=== PATIENT | male | born 1940 | race Caucasian/White ===

== ENCOUNTER 2017-08-16 12:11 | Inpatient (IN) | payer MEDICARE ==
[~2017-08-16] VITALS: Ht 177.8 cm; Wt 65.3 kg
[2017-08-16] MEDS ORDERED: IV NORMAL SALINE 1000 ML BAG IV ONE (12:30)
[2017-08-16] MEDS ORDERED: INSULIN REGULAR, HUMAN 1,000 UNITS/10 ML VIAL IV ONE (12:30)
[2017-08-16] MEDS ORDERED: INSULIN REGULAR, HUMAN 300 UNIT/3 ML VIAL ONE (12:38)
[2017-08-16 12:50] LABS: BASOPHILS % (AUTO) 0.1 % (0.0-2.0); HEMATOCRIT 35.1 % (36.7-47.1); HEMOGLOBIN 11.8 g/dL (12.5-16.3); LYMPHOCYTES # (AUTO) 0.4 K/uL (20.0-40.0); LYMPHOCYTES % (AUTO) 3.2 % (20.5-51.5); MEAN CORPUSCULAR HEMOGLOBIN 29.5 uug (23.8-33.4); MEAN CORPUSCULAR HGB CONC 34 g/dL (32.5-36.3); MEAN CORPUSCULAR VOLUME 87.8 fL (73.0-96.2); MONOCYTES # (AUTO) 0.3 K/uL (2.0-10.0); MONOCYTES % (AUTO) 2.8 % (0.0-11.0); NEUTROPHILS # (AUTO) 11.3 K/uL (1.8-8.9); NEUTROPHILS % (AUTO) 93.9 % (38.5-71.5); PLATELET COUNT (AUTO) 196 K/uL (152-348); WHITE BLOOD COUNT (AUTO) 12.1 K/uL (3.6-10.2)
--- NOTE | 2017-08-16 13:00 | NUR ---
attempted to place folley cath per md order, unable to proced due to resistance in the urethera.
[2017-08-16] MEDS ORDERED: LORAZEPAM 2 MG/1 ML VIAL ONE (13:01)
[2017-08-16 13:04] LABS: ETHANOL < 3 MG/DL (0-0)
[2017-08-16 13:08] LABS: CARBON DIOXIDE 23 mmol/L (21-32); CHLORIDE 97 mmol/L (98-107); CREATININE 2.8 mg/dL (0.6-1.3); POTASSIUM 4.2 mmol/L (3.5-5.1); UREA NITROGEN, BLOOD 61 mg/dL (7-18)
[2017-08-16 13:10] LABS: GLUCOSE 623 mg/dL (74-106)
[2017-08-16 13:17] LABS: THYROID STIMULATING HORMONE 1.545 mIU/mL (0.358-3.740)
[2017-08-16 13:20] LABS: ALANINE AMINOTRANSFERASE 14 U/L (16-63); ALKALINE PHOSPHATASE 84 U/L (50-136); ASPARTATE AMINOTRANSFERASE 14 U/L (15-37); BILIRUBIN,DIRECT 0.4 mg/dL (0.0-0.2); BILIRUBIN,TOTAL 1.4 mg/dL (0.2-1.0); TOTAL PROTEIN, SERUM 7.8 g/dL (6.4-8.2)
[2017-08-16 13:22] LABS: ACETAMINOPHEN < 2.0 ug/mL (10-30)
--- NOTE | 2017-08-16 13:27 | NUR ---
bi=[id number]
[2017-08-16] MEDS ORDERED: IV NS 1000 ML 1,000 ML IV ONE (13:45)
[2017-08-16] MEDS ORDERED: LIDOCAINE 2% (UROJET) 10 ML JELLY MM ONE ×4 (14:20→16:45)
--- NOTE | 2017-08-16 14:20 | NUR ---
BLADDER SCAN SHOWS [address] QUIROZ CALLED. Addendum: 08/16/17 at 1547 by FRANDY CHANGE OF TIME, [id number]
--- NOTE | 2017-08-16 14:36 | NUR ---
condom cath placed for pt per md order.
--- NOTE | 2017-08-16 14:38 | NUR ---
pt daughter at [facility], talked to jazmyn, social sciences professor.
--- NOTE | 2017-08-16 15:13 | NUR ---
Call placed to [facility], Dr. Starks will be paged.
[2017-08-16] MEDS ORDERED: CEFTRIAXONE 1 G in IV DEXTROSE 5% 50 ML IV ONE (15:15)
[2017-08-16] MEDS ORDERED: CEFTRIAXONE 1 G VIAL ONE (15:28)
--- NOTE | 2017-08-16 15:36 | NUR ---
ELKIN speaking to Dr. Starks
--- NOTE | 2017-08-16 16:08 | NUR ---
TENA, PT DAUGHTER CALLED AND SAID THE PT HAS BEEN ON SOME PROSTATE MEDICICNE BEFORE NOT ANY MORE ND THE PT HAS NO KNOWN DRUG ALLERGY, ALSO THE PT TAKES SOME TRAMADOL AT HOME. DOES NOT KNOW THE DOSAGE Addendum: 08/16/17 at 1926 by SPOURMANSO TENA ALSO SAID THAT THE PT WAS COMPLAINING ABOUT FORGETFULNESS LATELY.
--- NOTE | 2017-08-16 16:29 | NUR ---
FRANCO note: Patient brought into the ED by paramedics at 12:10pm. Paramedics reported that they found patient in his home, naked on the floor, not responsive. Paramedics stated that the house was very hot, very unkept and dirty, and the house smelled of urine. Paramedics also stated that the gas burner was on at the highest level. Paramedics reported that patient's son, who suffers from epilepsy was also in the home, and that he was able to notify his half-sister of the incidence. At around 1:20pm, SW tried to meet with patient in his assigned ED room, but patient was unresponsive and no history was able to be obtained. Patient did not have any personal belongings, clothing, or identification on him. SW was informed by ED wanigan clerknicole Palma that patient's step-daughter had called him and had stated that they had gone to the wrong hospital, but were now on their way to see the patient. At 2:35pm, patient's ex- Marcela Lugo and patient's step-daughter Lily Brown (Marcela's daughter) arrived to the ED. SW met with the both of them, and they were able to provide some history on the patient. Marcela and the patient nearly 30 years ago, and have 1 son, Marquise Dubon (39 years old). Marquise Blandon is the son that lives with the patient, and he suffers from epilepsy, is legally blind, and according to Marcela and Lily may also suffer from additional developmental disabilities that the Marcela and Lily did not know specifics on. Marcela stated that when she and patient , she agreed to give the patient full custody of their son, and therefore she has very limited contact with her son. Marcela stated that she has not been allowed to visit the patient or their son. However, Lily stated that she and her sister (Juanita Brown) have some contact with their half-brother. Lily reported that patient does not receive any medical care, and has not seen a doctor in many years. Lily is uncertain of any medications for patient. Lily is also uncertain of patient's insurance benefits. Lily also stated that patient does not have any family members in [place]. FRANCO discussed with Marcela and Lily the pie topper's report on how the paramedics found the patient. FRANCO informed both Lily and Marcela that SW is legally obligated to make an APS report for self-neglect, and they both expressed understanding and agreement. FRANCO thanked Lily and Marcela for their time and cooperation. FRANCO informed STEPH Ramirez and Dr. Aj of above. 4:00pm: FRANCO made an online APS report. Report # [id number].
--- NOTE | 2017-08-16 16:38 | NUR ---
UT=[id number]
[2017-08-16] MEDS ORDERED: INSULIN REGULAR, HUMAN 100 UNITS in IV NORMAL SALINE 100 ML IV ONE ×2 (17:00)
[2017-08-16 17:24] LABS: *BILIRUBIN,URIN NEGATIVE (NEGATIVE); *BLOOD, URINE 2+ (NEGATIVE); *CLARITY,URINE CLEAR (CLEAR); *COLOR,URINE YELLOW (YELLOW); *KETONES,URINE NEGATIVE (NEGATIVE); *PROTEIN,URINE 1+ (NEGATIVE); *UROBILINOGEN,URINE 0.2 E.U./dl (NORMAL); LEUKOCYTE ESTERASE ,URINE 1+ (NEGATIVE); NITRITE, URINE NEGATIVE (NEGATIVE)
[2017-08-16 17:26] LABS: UGLUCOSE 2+ (NEGATIVE)
[2017-08-16 17:28] LABS: BACTERIA,URINE MODERATE /HPF (NONE SEEN); SQUAMOUS EPITHELIAL CELL,UR FEW /HPF (NONE SEEN); WBC,URINE 80-100 /HPF (0-3)
[2017-08-16 17:33] LABS: *AMPHETAMINE, URINE NEGATIVE (NEGATIVE); *BARBITURATE, URINE NEGATIVE (NEGATIVE); *CANNABINOID, URINE NEGATIVE (NEGATIVE); *COCCAINE, URINE NEGATIVE (NEGATIVE); *OPIATE, URINE NEGATIVE (NEGATIVE); *PHENCYCLIDINE SCREEN,URINE NEGATIVE (NEGATIVE)
--- NOTE | 2017-08-16 18:01 | NUR ---
QG=[id number]
[2017-08-16] MEDS ORDERED: ONDANSETRON 4 MG/2 ML VIAL ONE (18:09)
[2017-08-16] MEDS ORDERED: MORPHINE SULFATE 4 MG/1 ML DISP.SYRIN ONE (18:09)
--- NOTE | 2017-08-16 18:10 | NUR ---
DR. CAREN QUIROZ AT BEDSIDE TO PLACE FOLLEY
[2017-08-16] MEDS ORDERED: ONDANSETRON 4 MG/2 ML VIAL IV ONE (18:15)
[2017-08-16] MEDS ORDERED: MORPHINE SULFATE 2 MG/1 ML DISP.SYRIN IV ONE (18:15)
--- NOTE | 2017-08-16 18:36 | NUR ---
DR. QUIROZ PLACED FOLLEY CATH 16. DRAINED 1700 ML URINE
--- NOTE | 2017-08-16 19:18 | NUR ---
SY=[id number]
--- NOTE | 2017-08-16 19:27 | NUR ---
HANDS OFF REPORT GIVEN TO NEO CHOI.
--- NOTE | 2017-08-16 20:57 | NUR ---
Pt transferred to CCU. Emptied 2000ml of cloudy yellow urine.
[2017-08-16 21:04] VITALS: BP 129/73
--- NOTE | 2017-08-16 21:05 | NUR ---
ADMITTED FROM ER VIA [facility] W/ ADMITTING DX OF SEPSIS W/ BLOOD SUGAR OF 279. PT. IS LETHARGIC.OPENS HIS EYES TO NOXIOUS STIMULI. PT IS VERBALLY NONRESPONSIVE. ON REGULAR INSULIN DRIP @ 5 UNITS/HR,ON L WRIST W/ ACCUCHECK Q1H. HEP LOCK INTACT & PATENT ON RFA. C-SCOPE SR, AFEBRILE, BP STABLE. BEDBATH GIVEN & REPOSITIONED ON HIS SIDE W/ HOB ELEVATED.
[2017-08-16 21:30] VITALS: BP 123/60
[2017-08-16 22:00] VITALS: BP 113/62
[2017-08-16] MEDS ORDERED: MORPHINE SULFATE 2 MG/1 ML DISP.SYRIN IV PRN (22:00)
[2017-08-16] MEDS ORDERED: INSULIN REGULAR, HUMAN 100 UNIT in IV NORMAL SALINE 99 ML IV PRN ×2 (22:00)
[2017-08-16] MEDS ORDERED: ALBUTEROL SULFATE 2.5 MG/3 ML NEBU NEB PRN (22:00)
[2017-08-16] MEDS ORDERED: ACETAMINOPHEN 650 MG SUPP.RECT RC PRN (22:00)
[2017-08-16] MEDS ORDERED: Z GUARD REMEDY PASTE 57 GM TUBE TOP PRN (22:15)
[2017-08-16 22:30] VITALS: BP 107/53
[2017-08-16] MEDS: IV NS 1000 ML 1,000 ML IV PRN (22:30)
[2017-08-16] MEDS ORDERED: VANCOMYCIN IV 1,000 MG in IV DEXTROSE 5% 250 ML IV ONE (22:30)
[2017-08-16 23:00] VITALS: BP 101/50
[2017-08-16] MEDS ORDERED: BLOOD SUGAR DIAGNOSTIC 1 EACH STRIP VI SCH (23:00)
--- NOTE | 2017-08-16 23:00 | NUR ---
MARIBETH DONE BS-68, CALLED LAB TO RECHECK BS STAT.
[2017-08-16] MEDS ORDERED: PIPERACILLIN/TAZOBACTAM/D5W 100 ML ONE (23:19)
[2017-08-16] MEDS ORDERED: VANCOMYCIN IV 200 ML ONE (23:19)
[2017-08-16] MEDS: PIPERACILLIN/TAZOBACTAM/D5W 2.25 G in PREMIXED 1 EACH IV SCH (23:20)
--- NOTE | 2017-08-16 23:30 | NUR ---
BLOOD SUGAR BY LAB-69, CALLED OLIVIA FLOWER.
[2017-08-17] VITALS (23 sets, daily range): BP systolic 96–139; BP diastolic 51–76
[2017-08-17] MEDS ORDERED: DEXTROSE 50% 50 ML DISP.SYRIN IV ONE
[2017-08-17] MEDS: IV NS 1000 ML 1,000 ML IV PRN (00:03)
--- NOTE | 2017-08-17 00:20 | NUR ---
OLIVIA FLOWER CALLED BACK UPDATED OF PTS STATUS W/ ORDERS
[2017-08-17] MEDS ORDERED: DEXTROSE 50% 50 ML DISP.SYRIN IV PRN (00:30)
[2017-08-17 00:47] LABS: CARBON DIOXIDE 29 mmol/L (21-32); CHLORIDE 108 mmol/L (98-107); CREATININE 1.6 mg/dL (0.6-1.3); GLUCOSE 66 mg/dL (74-106); POTASSIUM 3.3 mmol/L (3.5-5.1); UREA NITROGEN, BLOOD 51 mg/dL (7-18)
[2017-08-17] MEDS: IV D5W 1000ML 1,000 ML IV PRN ×2 (00:47→17:17)
[2017-08-17 00:51] LABS: MAGNESIUM 2.7 mg/dL (1.8-2.4); PHOSPHOROUS 3.6 mg/dL (2.5-4.9)
[2017-08-17] MEDS: BLOOD SUGAR DIAGNOSTIC 1 EACH STRIP VI SCH ×6 (03:44→23:46)
[2017-08-17] MEDS: INSULIN REGULAR, HUMAN 300 UNIT/3 ML VIAL SQ PRN ×6 (03:59→23:47)
--- NOTE | 2017-08-17 04:00 | NUR ---
AM CARE DONE. ORAL CARE DONE. REPOSITIONED ON HIS SIDE.
[2017-08-17 05:33] LABS: *BILIRUBIN,URIN NEGATIVE (NEGATIVE); *BLOOD, URINE 2+ (NEGATIVE); *CLARITY,URINE TURBID (CLEAR); *COLOR,URINE YELLOW (YELLOW); *KETONES,URINE NEGATIVE (NEGATIVE); *PROTEIN,URINE 1+ (NEGATIVE); *UROBILINOGEN,URINE 0.2 E.U./dl (NORMAL); LEUKOCYTE ESTERASE ,URINE 3+ (NEGATIVE); NITRITE, URINE NEGATIVE (NEGATIVE)
--- NOTE | 2017-08-17 05:35 | NUR ---
PT IS VERBALLY RESPONSIVE THIS TIME. REMAINS DROWSY. V/S STABLE.
[2017-08-17] MEDS: PIPERACILLIN/TAZOBACTAM/D5W 2.25 G in PREMIXED 1 EACH IV SCH (05:41)
[2017-08-17 05:45] LABS: UGLUCOSE 1+ (NEGATIVE)
[2017-08-17 05:47] LABS: BACTERIA,URINE FEW /HPF (NONE SEEN); RBC,URINE TNTC /HPF (0-3); SQUAMOUS EPITHELIAL CELL,UR FEW /HPF (NONE SEEN); WBC,URINE TNTC /HPF (0-3)
[2017-08-17 05:52] LABS: IRON, SERUM 22 ug/dL (50-175)
[2017-08-17 05:57] LABS: ALANINE AMINOTRANSFERASE 16 U/L (16-63); ALKALINE PHOSPHATASE 77 U/L (50-136); ASPARTATE AMINOTRANSFERASE 15 U/L (15-37); CARBON DIOXIDE 28 mmol/L (21-32); CHLORIDE 105 mmol/L (98-107); CHOLESTEROL 148 mg/dL (<200); CREATININE 1.4 mg/dL (0.6-1.3); GLUCOSE 276 mg/dL (74-106); HDL CHOLESTEROL 66 mg/dL (40-60); MAGNESIUM 2.5 mg/dL (1.8-2.4); PHOSPHOROUS 3.3 mg/dL (2.5-4.9); POTASSIUM 3.6 mmol/L (3.5-5.1); TOTAL PROTEIN, SERUM 7.7 g/dL (6.4-8.2); TRIGLYCERIDES 42 MG/DL (30-150); UREA NITROGEN, BLOOD 46 mg/dL (7-18)
[2017-08-17 06:08] LABS: BASOPHILS % (AUTO) 0.1 % (0.0-2.0); EOSINOPHILS % (AUTO) 0.1 % (0.0-7.0); HEMATOCRIT 37.2 % (36.7-47.1); HEMOGLOBIN 12.5 g/dL (12.5-16.3); LYMPHOCYTES # (AUTO) 0.6 K/uL (20.0-40.0); LYMPHOCYTES % (AUTO) 3.7 % (20.5-51.5); MEAN CORPUSCULAR HEMOGLOBIN 29.5 uug (23.8-33.4); MEAN CORPUSCULAR HGB CONC 34 g/dL (32.5-36.3); MEAN CORPUSCULAR VOLUME 87.7 fL (73.0-96.2); MONOCYTES # (AUTO) 1.2 K/uL (2.0-10.0); MONOCYTES % (AUTO) 7.7 % (0.0-11.0); NEUTROPHILS # (AUTO) 13.9 K/uL (1.8-8.9); NEUTROPHILS % (AUTO) 88.4 % (38.5-71.5); PLATELET COUNT (AUTO) 182 K/uL (152-348); RED BLOOD CELL COUNT(AUTO) 4.24 MIL/uL (4.06-5.63); WHITE BLOOD COUNT (AUTO) 15.7 K/uL (3.6-10.2)
--- NOTE | 2017-08-17 07:30 | NUR ---
RECIEVED LYING IN BED WITH HOB UP 35DEGREES. PT MORE ALERT AND RESPONSIVE. ORIENTED X2. DENIES ANY PAIN. ABLE TO SWALLOW WATER WELL. NO APPARENT SOB NOTED. SOMEWHAT SLOW IN SPEECH BUT CLEAR. MOVES ALL EXTREMETIES WITH GENERAL MILD WEAKNESS. STILL NPO AT THIS TIME. AFEBRILE.
[2017-08-17] MEDS ORDERED: ASPIRIN 300 MG RECTAL SUPP RC SCH (09:00)
[2017-08-17] MEDS: PANTOPRAZOLE SODIUM 40 MG VIAL IV SCH (09:11)
[2017-08-17] MEDS ORDERED: MORPHINE SULFATE 4 MG/1 ML DISP.SYRIN IV PRN (09:30)
[2017-08-17] MEDS ORDERED: MORPHINE SULFATE 2 MG/1 ML DISP.SYRIN IV PRN (09:45)
--- NOTE | 2017-08-17 10:00 | NUR ---
2D ECHO DONE AT THE BEDSIDE.
[2017-08-17] MEDS ORDERED: VANCOMYCIN IV 1 G in PREMIXED 0 EACH IV SCH (11:00)
--- NOTE | 2017-08-17 11:30 | NUR ---
RENAL US DONE AT THE BEDSIDE.
--- NOTE | 2017-08-17 14:34 | NUR ---
Clinical pharmacy note-Vancomycin dosing per pharmacy Subjective: To start Vancomycin dosing on this patient for Documented infection(No MD note yet) Objective: BUN 46 Scr 1.4 WBC 15.7 Temp 98.5 Ht 177.8cm Wt 65kg Assessment/Plan: Patient had Vancomycin 1 gram in er last night at 2340. Will continue Vancomycin 1 gram IV every 24hrs(second dose today at 1100) and draw trough by 4th dose(not ordered yet) for expected trough around 15. Will monitor daily.
[2017-08-17] MEDS: PIPERACILLIN/TAZOBACTAM/D5W 3.375 G in PREMIXED 1 EACH IV SCH ×2 (14:53→22:12)
[2017-08-17 15:54] LABS: *CREATININE,URINE 57.6 mg/dL (30-125); *URINE TOTAL PROTEIN RANDOM 61.5 mg/dL (<150/24HR)
[2017-08-17 15:56] LABS: *BILIRUBIN,URIN NEGATIVE (NEGATIVE); *BLOOD, URINE 3+ (NEGATIVE); *CLARITY,URINE CLOUDY (CLEAR); *COLOR,URINE YELLOW (YELLOW); *KETONES,URINE NEGATIVE (NEGATIVE); *PROTEIN,URINE 1+ (NEGATIVE); *UROBILINOGEN,URINE 0.2 E.U./dl (NORMAL); LEUKOCYTE ESTERASE ,URINE 1+ (NEGATIVE); NITRITE, URINE NEGATIVE (NEGATIVE); PH,URINE 5.5 (5.0-8.0)
[2017-08-17 15:57] LABS: UGLUCOSE 2+ (NEGATIVE)
[2017-08-17 15:58] LABS: BACTERIA,URINE FEW /HPF (NONE SEEN); SQUAMOUS EPITHELIAL CELL,UR FEW /HPF (NONE SEEN); WBC,URINE 80-100 /HPF (0-3)
--- NOTE | 2017-08-17 16:30 | NUR ---
SEEN AND EXAMINED BY DR COLEMAN WITH NEW ORDERS. PT DRINKING FLUIDS WELL WITHOUT ANY PROBLEM. PM CARE RENDERED. GOOD URINE OUT PUT DRAING FSROM THE FOLEYCATHETER. AFEBRILE.
--- NOTE | 2017-08-17 20:00 | NUR ---
RECEIVED PT. RESTING QUITELY THIS TIME. ON O2 @ 3LNC W/ O2 SAT OF 97%. IVF OF D5W @ 75CC/HR ON L WRIST. HEP LOCK INTACT & PATENT ON RFA. AFEBRILE, BP STABLE. ACCUCHECK DONE & COVERED W/ REGULAR INSULIN SUBCU ACCDG TO MODERATE SLIDING SCALE. NOT IN ANY DISTRESS.
--- NOTE | 2017-08-17 22:00 | NUR ---
HS CARE DONE. REPOSITIONED.
[2017-08-18] VITALS (14 sets, daily range): BP systolic 108–151; BP diastolic 56–77
--- NOTE | 2017-08-18 00:05 | NUR ---
AFEBRILE. BP STABLE. TAKING FLUIDS WELL, ALWAYS ASKED FOR WATER.
[2017-08-18] MEDS: BLOOD SUGAR DIAGNOSTIC 1 EACH STRIP VI SCH ×5 (03:52→20:11)
[2017-08-18 05:24] LABS: BASOPHILS % (AUTO) 0.3 % (0.0-2.0); EOSINOPHILS # (AUTO) 0.2 K/uL (0.0-0.7); EOSINOPHILS % (AUTO) 1.8 % (0.0-7.0); HEMATOCRIT 35.9 % (36.7-47.1); HEMOGLOBIN 12.2 g/dL (12.5-16.3); LYMPHOCYTES # (AUTO) 1.1 K/uL (20.0-40.0); LYMPHOCYTES % (AUTO) 9.3 % (20.5-51.5); MEAN CORPUSCULAR HEMOGLOBIN 29.4 uug (23.8-33.4); MEAN CORPUSCULAR HGB CONC 34 g/dL (32.5-36.3); MEAN CORPUSCULAR VOLUME 86.6 fL (73.0-96.2); MONOCYTES % (AUTO) 8.7 % (0.0-11.0); NEUTROPHILS # (AUTO) 9.3 K/uL (1.8-8.9); NEUTROPHILS % (AUTO) 79.9 % (38.5-71.5); PLATELET COUNT (AUTO) 170 K/uL (152-348); RED BLOOD CELL COUNT(AUTO) 4.14 MIL/uL (4.06-5.63); WHITE BLOOD COUNT (AUTO) 11.6 K/uL (3.6-10.2)
--- NOTE | 2017-08-18 05:30 | NUR ---
AM CARE DONE. REFUSED TO BRUSH HIS TEETH, STATED LATER. NOT IN ANY DISTRESS.
[2017-08-18] MEDS: PIPERACILLIN/TAZOBACTAM/D5W 3.375 G in PREMIXED 1 EACH IV SCH ×3 (05:40→21:42)
[2017-08-18 05:50] LABS: ALANINE AMINOTRANSFERASE 16 U/L (16-63); ALKALINE PHOSPHATASE 68 U/L (50-136); ASPARTATE AMINOTRANSFERASE 16 U/L (15-37); BILIRUBIN,TOTAL 1.2 mg/dL (0.2-1.0); CARBON DIOXIDE 33 mmol/L (21-32); CHLORIDE 103 mmol/L (98-107); CREATINE KINASE, TOTAL 34 U/L (39-308); CREATININE 0.9 mg/dL (0.6-1.3); GLUCOSE 113 mg/dL (74-106); PHOSPHOROUS 2.3 mg/dL (2.5-4.9); POTASSIUM 3.3 mmol/L (3.5-5.1); UREA NITROGEN, BLOOD 26 mg/dL (7-18)
--- NOTE | 2017-08-18 07:30 | NUR ---
RECIEVED PT SOUND ASLEEP BUT AROUSABLE. COLOR IS GOOD, SKIN WARM AND DRY. SR ON THEMONITOR. SATTING 100% ON RA. PT PREFERS TO EAT REAL FOOD AND REFUSED TO EAT PUREED. ORDERED SOFT DIABETIC DIET AND ITS OK PER DR COLEMAN.
[2017-08-18] MEDS: IV D5W 1000ML 1,000 ML IV PRN (08:29)
--- NOTE | 2017-08-18 08:30 | NUR ---
PT STILL SOUND ASLEEP. LATE BREAKFAST. NO C/O APPARENT DISCOMFORTS.
[2017-08-18] MEDS ORDERED: MORPHINE SULFATE 4 MG/1 ML DISP.SYRIN IV PRN (08:37)
[2017-08-18] MEDS: INSULIN REGULAR, HUMAN 300 UNIT/3 ML VIAL SQ PRN ×3 (08:48→17:28)
[2017-08-18] MEDS: ASPIRIN 325 MG TABLET PO SCH (09:25)
[2017-08-18] MEDS: PANTOPRAZOLE SODIUM 40 MG VIAL IV SCH (09:25)
[2017-08-18] MEDS: VANCOMYCIN IV 1 G in PREMIXED 0 EACH IV SCH (09:36)
--- NOTE | 2017-08-18 09:44 | NUR ---
Clinical pharmacy note-Vancomycin dosing per pharmacy Subjective: To continue Vancomycin dosing on this patient for Documented infection( increased wbc, arf) Objective: BUN 26 Scr 0.9 (yesterday 1.4) WBC 11.6 Temp 97.6 Ht 177.8cm Wt 65kg Assessment/Plan: As renal function drastically has improved, adjusted regimen to 1gm q16hr for estimated trough of 16.7, first dose today at 0900. Will order trough beofre 4th scheduled dose (not ordered yet). If renal function were to change again, will adjust accordingly. Will follow
[2017-08-18 10:07] LABS: *TESTOSTERONE, SERUM 158 ng/dL (264-916)
--- NOTE | 2017-08-18 10:25 | NUR ---
Unable to perform Prostate Ultrasound. The Gamino's catheter is compressing the prostate gland. The accurate measurement is not possible. STEPH Campo noted.
--- NOTE | 2017-08-18 11:30 | NUR ---
SEEN AND EXAMINED BY DR AGUILAR . US OF THE PROSTATE NOT DONE . US TECH SAID THAT ITS DIFFICULT TO GET A GOOD PICTURE OF THE PROSSTATE BECAUSE OF THE PRESENCE OF THE FOLEYCATHETER.
--- NOTE | 2017-08-18 14:00 | NUR ---
PT DOWNGRADED TO MEDR WITH AN ORDER FOR [facility]AVIER TO TRANSFER. RN DAVID MADE AWARE.
--- NOTE | 2017-08-18 14:00 | NUR ---
URINE C&S SENT TO LAB PER ID ORDER.
--- NOTE | 2017-08-18 15:00 | NUR ---
PT TAKEN DOWN TO CT SCAN FOR LUMBAR SPINE VIA BED. CONDITION IS STABLE.
[2017-08-18] MEDS: POTASSIUM PHOSPHATE MM 7.5 MMOL in IV DEXTROSE 5% 100 ML IV SCH ×2 (15:10→18:03)
--- NOTE | 2017-08-18 15:20 | NUR ---
PT IS BACK FROM CT SCAN. ALERT AND VERY CONVERSANT. SEEN AND EXAMINED BY DR COLEMAN WITH A TRANSFER ORDER TO [facility]. AWAITING FOR BED. KPHOS 3MMOL FIRST BAG IS INFUSING IV ORDERED.
[2017-08-18] MEDS: METFORMIN HCL 500 MG TABLET PO SCH (17:16)
--- NOTE | 2017-08-18 19:00 | NUR ---
TRANSFERED TO 210 MED/SURG STATUS VIA BED. TATIANA HCOI GAVE REPORT TO INCOMING RN.
[2017-08-18] MEDS ORDERED: QUETIAPINE FUMARATE 25 MG TABLET PO PRN (19:30)
--- NOTE | 2017-08-18 19:30 | NUR ---
Transferred from CCU dept. via bed. patient awake & alert, confused no SOB denies chest pain. Gamino catheter in place. 1:1 sitter provided for patient's safety. Vital signs WNL.
--- NOTE | 2017-08-18 22:00 | NUR ---
Patient attempted to OOB, disoriented to place. Re-orientation initiated. 1:1 sitter at bed side.
--- NOTE | 2017-08-19 | NUR ---
Asleep, no sign of distress. Kept comfortable.
[2017-08-19] MEDS: VANCOMYCIN IV 1 G in PREMIXED 0 EACH IV SCH (00:54)
[2017-08-19] MEDS: BLOOD SUGAR DIAGNOSTIC 1 EACH STRIP VI SCH ×6 (04:53→20:28)
[2017-08-19] MEDS: INSULIN REGULAR, HUMAN 300 UNIT/3 ML VIAL SQ PRN ×3 (04:57→16:11)
[2017-08-19] MEDS: PANTOPRAZOLE SODIUM 40 MG TABLET.DR PO SCH (05:02)
[2017-08-19] MEDS: PIPERACILLIN/TAZOBACTAM/D5W 3.375 G in PREMIXED 1 EACH IV SCH ×3 (05:02→21:45)
--- NOTE | 2017-08-19 05:48 | NUR ---
Tolerated routine IV medications. Patient remains asleep at this time, no acute resp. distress. Vital signs stable. Will continue to monitor. 1:1 sitter in room.
[2017-08-19 06:21] VITALS: BP 117/65
[2017-08-19 06:23] LABS: BASOPHILS % (AUTO) 0.3 % (0.0-2.0); EOSINOPHILS # (AUTO) 0.4 K/uL (0.0-0.7); EOSINOPHILS % (AUTO) 4.1 % (0.0-7.0); HEMATOCRIT 34.2 % (36.7-47.1); HEMOGLOBIN 11.9 g/dL (12.5-16.3); LYMPHOCYTES % (AUTO) 11.7 % (20.5-51.5); MEAN CORPUSCULAR HEMOGLOBIN 29.6 uug (23.8-33.4); MEAN CORPUSCULAR HGB CONC 35 g/dL (32.5-36.3); MEAN CORPUSCULAR VOLUME 84.9 fL (73.0-96.2); MONOCYTES # (AUTO) 0.8 K/uL (2.0-10.0); MONOCYTES % (AUTO) 9.4 % (0.0-11.0); NEUTROPHILS # (AUTO) 6.6 K/uL (1.8-8.9); NEUTROPHILS % (AUTO) 74.5 % (38.5-71.5); PLATELET COUNT (AUTO) 182 K/uL (152-348); RED BLOOD CELL COUNT(AUTO) 4.03 MIL/uL (4.06-5.63); WHITE BLOOD COUNT (AUTO) 8.9 K/uL (3.6-10.2)
[2017-08-19 06:32] LABS: CARBON DIOXIDE 29 mmol/L (21-32); CHLORIDE 101 mmol/L (98-107); CREATININE 0.9 mg/dL (0.6-1.3); GLUCOSE 206 mg/dL (74-106); MAGNESIUM 1.7 mg/dL (1.8-2.4); PHOSPHOROUS 2.3 mg/dL (2.5-4.9); POTASSIUM 3.1 mmol/L (3.5-5.1); UREA NITROGEN, BLOOD 16 mg/dL (7-18)
[2017-08-19] MEDS: LISINOPRIL 5 MG TABLET PO SCH (08:30)
[2017-08-19] MEDS: METFORMIN HCL 500 MG TABLET PO SCH ×2 (08:30→17:18)
[2017-08-19] MEDS: ASPIRIN 325 MG TABLET PO SCH (08:30)
[2017-08-19] MEDS: POTASSIUM CHLORIDE 50 ML IV SCH ×2 (09:28→10:57)
[2017-08-19 12:00] VITALS: BP 136/89
[2017-08-19] MEDS ORDERED: NEUTRA PHOS PACKET PO ONE (12:30)
[2017-08-19] MEDS ORDERED: MAGNESIUM SULFATE/D5W 100 ML IV SCH (12:30)
[2017-08-19] MEDS: LORAZEPAM 2 MG/1 ML VIAL IV PRN (13:38)
--- NOTE | 2017-08-19 14:12 | NUR ---
WOUND CARE CONSULT: PT PRESENTS WITH INTACT SKIN AND RESOLVED RASH TO INNER THIGHS. PT HAS TADEO CATH. SOME SCARS NOTED TO LEGS. PT IS VERY RESTLESS AND MOVES ALMOST CONSTANTLY AT THIS TIME. FIRST STEP OVERLAY CANCELLED FOR PT SAFETY. CURRENT JULIANE SCORE IS 13. WILL SEE PRN. RAHMAN IN AGREEMENT WITH PLAN OF CARE. Addendum: 08/19/17 at 1414 by RIC PANDYA RN Amended: Links added.
[2017-08-19 16:00] VITALS: BP 119/60
[2017-08-19 20:28] VITALS: BP 119/59
[2017-08-20] MEDS: BLOOD SUGAR DIAGNOSTIC 1 EACH STRIP VI SCH ×7 (00:13→23:55)
[2017-08-20] MEDS: INSULIN REGULAR, HUMAN 300 UNIT/3 ML VIAL SQ PRN ×4 (00:14→20:06)
[2017-08-20] MEDS: PANTOPRAZOLE SODIUM 40 MG TABLET.DR PO SCH ×2 (06:02→07:00)
[2017-08-20] MEDS: PIPERACILLIN/TAZOBACTAM/D5W 3.375 G in PREMIXED 1 EACH IV SCH ×3 (06:02→21:37)
[2017-08-20 06:06] LABS: A/G RATIO 0.7 (0.7-1.7); ALBUMIN 2.7 g/dL (2.9-4.4); ALPHA-1-GLOBULIN 0.3 g/dL (0.0-0.4); BETA GLOBULIN 0.9 g/dL (0.7-1.3); GAMMA GLOBULIN 1.6 g/dL (0.4-1.8); GLOBULIN, TOTAL 3.9 g/dL (2.2-3.9); M-SPIKE Not Observed g/dL (Not Observed)
[2017-08-20 06:15] VITALS: BP 127/66
[2017-08-20] MEDS: METFORMIN HCL 500 MG TABLET PO SCH ×2 (08:02→18:06)
[2017-08-20 08:23] VITALS: BP 129/70
[2017-08-20 08:42] LABS: BASOPHILS # (AUTO) 0.1 K/uL (0.0-8.0); EOSINOPHILS # (AUTO) 0.4 K/uL (0.0-0.7); EOSINOPHILS % (AUTO) 4.4 % (0.0-7.0); HEMATOCRIT 36.8 % (36.7-47.1); HEMOGLOBIN 12.8 g/dL (12.5-16.3); LYMPHOCYTES % (AUTO) 9.7 % (20.5-51.5); MEAN CORPUSCULAR HEMOGLOBIN 29.8 uug (23.8-33.4); MEAN CORPUSCULAR HGB CONC 35 g/dL (32.5-36.3); MEAN CORPUSCULAR VOLUME 85.7 fL (73.0-96.2); MONOCYTES # (AUTO) 0.7 K/uL (2.0-10.0); MONOCYTES % (AUTO) 6.9 % (0.0-11.0); PLATELET COUNT (AUTO) 232 K/uL (152-348); WHITE BLOOD COUNT (AUTO) 10.2 K/uL (3.6-10.2)
[2017-08-20 08:55] LABS: ALANINE AMINOTRANSFERASE 17 U/L (16-63); ALKALINE PHOSPHATASE 61 U/L (50-136); ASPARTATE AMINOTRANSFERASE 15 U/L (15-37); BILIRUBIN,TOTAL 1.2 mg/dL (0.2-1.0); CARBON DIOXIDE 31 mmol/L (21-32); CHLORIDE 101 mmol/L (98-107); CREATININE 0.9 mg/dL (0.6-1.3); GLUCOSE 169 mg/dL (74-106); MAGNESIUM 1.8 mg/dL (1.8-2.4); PHOSPHOROUS 3.4 mg/dL (2.5-4.9); POTASSIUM 3.3 mmol/L (3.5-5.1); UREA NITROGEN, BLOOD 13 mg/dL (7-18)
[2017-08-20] MEDS: LISINOPRIL 5 MG TABLET PO SCH (09:18)
[2017-08-20] MEDS: ASPIRIN 325 MG TABLET PO SCH (09:18)
[2017-08-20] MEDS: LORAZEPAM 2 MG/1 ML VIAL IV PRN ×2 (09:33→20:03)
[2017-08-20] MEDS ORDERED: POTASSIUM CHLORIDE 20 MEQ TAB.PRT.SR PO ONE (10:30)
[2017-08-20] MEDS: TAMSULOSIN HCL 0.4 MG CAP.SR.24H PO SCH ×2 (10:46→20:02)
[2017-08-20 11:10] VITALS: BP 111/54
[2017-08-20 15:11] VITALS: BP 120/64
--- NOTE | 2017-08-20 19:10 | NUR ---
Received pt lying in bed. Alert to self only, mainly confused and disoriented.family at bedside. In no acute distress. IV site on right wrist intact and patent. Bed on low and lock position. With 2:1 sitter. Safety measure initiated and call owen within reach.
[2017-08-20 20:00] VITALS: BP 126/61
[2017-08-21] MEDS: BLOOD SUGAR DIAGNOSTIC 1 EACH STRIP VI SCH ×5 (03:35→20:12)
[2017-08-21 04:00] VITALS: BP 114/64
[2017-08-21] MEDS: PIPERACILLIN/TAZOBACTAM/D5W 3.375 G in PREMIXED 1 EACH IV SCH ×2 (05:09→13:34)
[2017-08-21] MEDS: PANTOPRAZOLE SODIUM 40 MG TABLET.DR PO SCH (06:02)
--- NOTE | 2017-08-21 06:04 | NUR ---
Patient slept well last night. No signs of pain or SOB. In no acute distress. O2 sat at 99% on RA. IV site on right wrist remains intact and patent. No adverse reaction noted from IV ABX. Safety measure maintained and call owen within reach. With 2:1 sitter.
[2017-08-21] MEDS: METFORMIN HCL 500 MG TABLET PO SCH ×2 (08:13→17:05)
[2017-08-21] MEDS: INSULIN REGULAR, HUMAN 300 UNIT/3 ML VIAL SQ PRN ×4 (08:21→20:12)
[2017-08-21] MEDS: LISINOPRIL 5 MG TABLET PO SCH (08:30)
[2017-08-21] MEDS: ASPIRIN 325 MG TABLET PO SCH (08:30)
--- NOTE | 2017-08-21 08:32 | NUR ---
Held BP med due to low BP 83/49 and 89/49. Pt is sitting in chair eating breakfast. Pt is asymptomatic
--- NOTE | 2017-08-21 09:07 | NUR ---
Pt is noted walking with walker around the unit with physical therapist. No distress noted
--- NOTE | 2017-08-21 10:30 | NUR ---
Dr. Isabel aware of bladder scan results. Bladder scan revealed 888-->999 urine retention. MD will will come and see pt today for catheterization
[2017-08-21] MEDS ORDERED: LIDOCAINE 2% (UROJET) 10 ML JELLY MM STA (11:03)
[2017-08-21 11:59] VITALS: BP 109/56
--- NOTE | 2017-08-21 13:38 | NUR ---
Dr. Isabel inserted a Gamino catheter, 1100ml urine output noted in the Gamino after insertion
[2017-08-21 15:21] VITALS: BP 119/53
[2017-08-21] MEDS: LORAZEPAM 2 MG/1 ML VIAL IV PRN (18:40)
--- NOTE | 2017-08-21 18:54 | NUR ---
Pt pulled out his IV, new line started 22g on the left forearm
--- NOTE | 2017-08-21 19:20 | NUR ---
Received pt sitting in the cindy chair with sitter on his side. Pt anxious, was given Lorazepam around 6:50per day shift nurse Sarah. IV site on LFA intact and patent, cover with coban for protection. FC intact and draining via gravity. Pt to transfer to ARU today. Safety measure initiated.
[2017-08-21 20:00] VITALS: BP 107/56
--- NOTE | 2017-08-21 20:01 | NUR ---
Report given to ARU nurse. Night nurse will follow up discharging the pt to ARU.
[2017-08-21 20:30] VITALS: BP 107/56
--- NOTE | 2017-08-21 20:30 | NUR ---
Discharge pt to ARU via gerichair accompanied by this nurse and WILDER Mata. Discharge paper given to nurse Dontae and provided instruction and states understanding. Pt in no acute distress.
[2017-08-22] MEDS ORDERED: QUET25TA PO (02:03)
[2017-08-22] MEDS ORDERED: ACET650S13 RC (02:03)
[2017-08-22] MEDS ORDERED: BLOO-668 VI (02:03)
[2017-08-22] MEDS ORDERED: ASPI-612 PO (02:03)
[2017-08-22] MEDS ORDERED: METF500T6 PO (02:03)
[2017-08-22] MEDS ORDERED: PIPE3.379 IV (02:03)
[2017-08-22] MEDS ORDERED: LISI-607 PO (02:03)
[2017-08-22] MEDS ORDERED: INSU100V28 SQ (02:03)
[2017-08-22] MEDS ORDERED: PANT40TA2 PO (02:03)
[2017-08-22] MEDS ORDERED: ALBU2.5V38 NEB (02:03)
[2017-08-22] MEDS ORDERED: DEXT50DI8 IV (02:03)
[2017-08-22] MEDS ORDERED: LORA2VIA32 IV (02:03)
[2017-08-22] MEDS ORDERED: MORPHINE SULFATE INJ IV (02:03)
[2017-08-22] MEDS ORDERED: TAMS-3 PO (02:03)
== END 2017-08-21 20:30 | DRG 871 ==
LOC: ER 12:13 → CCU 20:15 → MED 08-18 20:00
PROVIDERS: ADMIT Internal Medicine; ATTEND Internal Medicine
PROC: 0T7D7ZZ Dilation of Urethra, Via Natural or Artificial Opening (ICD-10-PCS; principal; 2017-08-18)
DX: A41.9 Sepsis, unspecified organism (principal); E43 Unspecified severe protein-calorie malnutrition; G92 Toxic encephalopathy; R53.2 Functional quadriplegia; J69.0 Pneumonitis due to inhalation of food and vomit; N39.0 Urinary tract infection, site not specified; D68.59 Other primary thrombophilia; N17.9 Acute kidney failure, unspecified; E87.2 Acidosis; N13.6 Pyonephrosis; I50.32 Chronic diastolic (congestive) heart failure; M48.56XA Collapsed vertebra, not elsewhere classified, lumbar region, initial encounter for fracture; M48.54XA Collapsed vertebra, not elsewhere classified, thoracic region, initial encounter for fracture; B35.1 Tinea unguium; F03.90 Unspecified dementia, unspecified severity, without behavioral disturbance, psychotic disturbance, mood disturbance, and anxiety; M48.02 Spinal stenosis, cervical region; Z79.84 Long term (current) use of oral hypoglycemic drugs; E11.65 Type 2 diabetes mellitus with hyperglycemia; E88.09 Other disorders of plasma-protein metabolism, not elsewhere classified; N40.1 Benign prostatic hyperplasia with lower urinary tract symptoms; R33.8 Other retention of urine; Z91.81 History of falling; Z68.20 Body mass index [BMI] 20.0-20.9, adult; F09 Unspecified mental disorder due to known physiological condition; R65.20 Severe sepsis without septic shock; N48.21 Abscess of corpus cavernosum and penis; M25.78 Osteophyte, vertebrae; R60.9 Edema, unspecified; S90.32XA Contusion of left foot, initial encounter; X58.XXXA Exposure to other specified factors, initial encounter; Y93.9 Activity, unspecified; Y92.009 Unspecified place in unspecified non-institutional (private) residence as the place of occurrence of the external cause
CPT/HCPCS: 36415; 70030-TC; 70450; 71045; 72125; 72131; 73620; 76770; 80307; 82306; 82746; 83550; 83605; 83735; 83970; 84100; 84153; 84155; 84156; 84165; 84300; 84403; 84443; 85025; 85730; 86140; 87040; 87086; 93005; 93307; 97110; 97116; 97530; A4663; C1758; C9113; G0480; G0480-TC; J0696; J1815; J2060; J2270; J2405; J2543; J3370; J3475; J3480; J3490; J7030; J7050; J7060; J7070

== ENCOUNTER 2017-08-21 | Inpatient (IN) | payer MEDICARE ==
[~2017-08-21] VITALS: Ht 177.8 cm; Wt 65.8 kg
--- NOTE | 2017-08-22 | NUR ---
RECEIVED Pt IN ROOM SITTING IN JOYCE-CHAIR WITH 1:1 SITTER AT BEDSIDE FOR SAFETY, CONTINUES TO BE RESTLESS AND CONFUSED. Pt WAS BECOMING INCREASINGLY RESTLESS AND AGITATED, ADMINISTERED ATIVAN 0.5 MG IV INJ PRN WITH GOOD EFFECT. Pt HAS BEEN RESTING COMFORTABLY WITHOUT ANY NOTED DISTRESS SINCE ATIVAN ADMINISTRATION. BLOOD SUGAR OF 201 AT BEDTIME, COVERED WITH 6 UNITS OF REGULAR INSULIN PER SLIDING SCALE PROTOCOL. COMPLIANT WITH MEDS, NO HOSTILE OR COMBATIVE BEHAVIOR NOTED. Addendum: 08/23/17 at 0518 by CLAUDE GAINES RN WRONG DATE/TIME
[2017-08-22] MEDS ORDERED: Z GUARD REMEDY PASTE 57 GM TUBE TOP PRN (01:15)
[2017-08-22] MEDS ORDERED: TAMS-3 PO (02:03)
[2017-08-22] MEDS ORDERED: ALBU2.5V38 NEB (02:03)
[2017-08-22] MEDS ORDERED: LORA2VIA32 IV (02:03)
[2017-08-22] MEDS ORDERED: ASPI-612 PO (02:03)
[2017-08-22] MEDS ORDERED: BLOO-668 VI (02:03)
[2017-08-22] MEDS ORDERED: QUET25TA PO (02:03)
[2017-08-22] MEDS ORDERED: ACET650S13 RC (02:03)
[2017-08-22] MEDS ORDERED: PANT40TA2 PO (02:03)
[2017-08-22] MEDS ORDERED: DEXT50DI8 IV (02:03)
[2017-08-22] MEDS ORDERED: PIPE3.379 IV (02:03)
[2017-08-22] MEDS ORDERED: LISI-607 PO (02:03)
[2017-08-22] MEDS ORDERED: METF500T6 PO (02:03)
[2017-08-22] MEDS ORDERED: INSU100V28 SQ (02:03)
[2017-08-22] MEDS ORDERED: MORPHINE SULFATE INJ IV (02:03)
[2017-08-22] MEDS ORDERED: ALBUTEROL SULFATE 2.5 MG/3 ML NEBU NEB PRN (02:15)
[2017-08-22] MEDS ORDERED: DEXTROSE 50% 50 ML DISP.SYRIN IV PRN ×2 (02:15→19:54)
[2017-08-22] MEDS ORDERED: PIPERACILLIN/TAZO/D5W 3.375 GM FROZEN IV SCH ×2 (02:15→10:00)
[2017-08-22] MEDS ORDERED: ACETAMINOPHEN 650 MG SUPP.RECT RC PRN (02:15)
[2017-08-22] MEDS: LORAZEPAM 2 MG/1 ML VIAL IV PRN ×3 (04:06→21:54)
[2017-08-22] MEDS: BLOOD SUGAR DIAGNOSTIC 1 EACH STRIP VI SCH ×5 (04:06→20:19)
[2017-08-22] MEDS: INSULIN REGULAR, HUMAN 300 UNIT/3 ML VIAL SQ PRN ×4 (04:21→17:46)
[2017-08-22 04:24] VITALS: BP 125/65
--- NOTE | 2017-08-22 04:41 | NUR ---
ADMISSION NOTE: RECEIVED REPORT FROM 2ND FLOOR MEDICAL SURGICAL NURSE. Pt ARRIVED TO UNIT @ 2030 AND WAS BROUGHT IN BY MED SURG NURSE WITH 1:1 SITTER VIA JOYCE-CHAIR. RESPONDS TO NAME BUT CONFUSED TO TIME AND PLACE, RESTLESS AND EASILY AGITATED, COMPLIED TO MOST OF ASSESSMENT BUT UNABLE TO APPROPRIATELY RESPOND TO QUESTIONS ASKED BY NURSE DURING ASSESSMENT. Pt IN JOYCE-CHAIR WITH SITTER AT BEDSIDE. WILL DO MRSA SWAB AT A MORE APPROPRIATE TIME. NURSE WAS UNABLE TO ADMINISTER THE SCHEDULED ZOSYN IV MEDICATION @ 2200 DUE TO THE Pt NOT APPEARING ON THE EHR SYSTEM. NURSE CONTACTED ADMITTING AND ER STAFF MULTIPLE TIMES TO F/U. AUTOMOBILE BODY REPAIR SUPERVISOR, JERRY, WAS NOTIFIED REGARDING THE SITUATION. AFTER Pt WAS ADMITTED AND APPEARED ON EHR SYSTEM, MED REC WAS DONE AND CONTACTED NIGHT PHARMACY TO VERIFY MEDICATIONS. ZOSYN IV WAS ADMINISTERED @ 0215, WILL NOTIFY PHARMACY TO ADJUST THE TIME FOR FUTURE MEDICATION ADMINISTRATIONS. Pt TOLERATED MEDICATION WELL. Pt FELL ASLEEP AFTER BEING RESTLESS AND ANXIOUS UPON ADMISSION BUT WOKE UP AROUND 0345 RESTLESS, ANXIOUS, EASILY AGITATED, AND BEING INAPPROPRIATE TO CARE STAFF. ADMINISTERED ATIVAN 0.5 MG IV INJ PRN FOR ANXIETY/AGITATION. MEDICATION WAS EFFECTIVE, Pt NOW SLEEPING IN JOYCE-CHAIR WITH SITTER AT BEDSIDE. BLOOD SUGAR AT 0400 WAS 176, ADMINISTERED 3 UNITS OF REGULAR INSULIN PER MODERATE SLIDING SCALE PROTOCOL.
[2017-08-22] MEDS: PANTOPRAZOLE SODIUM 40 MG TABLET.DR PO SCH ×2 (07:06→08:53)
--- NOTE | 2017-08-22 07:30 | NUR ---
BEDSIDE SITTER FOR Pt AND HIS ROOMMATE NOTIFIED NURSE THAT THIS PATIENT STRUCK HIS ROOMMATE ON THE HEAD OUT OF NOWHERE. PER SITTER, THE PATIENT WAS IN A JOYCE-CHAIR RESTING WITHOUT ANY NOTED DISTRESS, NO AGGRESSIVE BEHAVIOR, NO RESTLESS BEHAVIOR NOTED, AND SUDDENLY REACHED OVER AND STRUCK HIS ROOMMATE ON THE HEAD WHO WAS IN BED. NURSE CONCRETE FINISHER WAS NOTIFIED, THIS NURSE RECOMMENDED FOR THIS PATIENT TO HAVE HIS OWN 1:1 SITTER. ENDORSED TO DAY SHIFT NURSE TO CONTACT THE DOCTOR AND FAMILY OF THE PATIENT WHO WAS STRUCK ON THE HEAD. THIS PATIENT WAS MOVED OUT OF THE ROOM AND PLACED IN THE ROOM ACROSS THE HALLWAY. INCIDENT REPORT HAS BEEN FILED.
[2017-08-22 07:56] VITALS: BP 106/59
--- NOTE | 2017-08-22 08:00 | NUR ---
rec d patient up in wheel chair in room 123 , f/c patent with tea colored urine and 1;1 sitter in room .patient appears to be off and on with behaviors , pt threw bedside table in afternoon and rec d ativan 0.5mg ivp for increased agitation at 15 55 it helped some. accuchecks covered with insulin worked with pt in rehab room . still needs 1;1 monitoring for safety;
[2017-08-22] MEDS: ASPIRIN 325 MG TABLET PO SCH (08:52)
[2017-08-22] MEDS: QUETIAPINE FUMARATE 25 MG TABLET PO PRN (08:53)
[2017-08-22] MEDS: METFORMIN HCL 500 MG TABLET PO SCH ×2 (08:53→17:48)
[2017-08-22] MEDS: LISINOPRIL 5 MG TABLET PO SCH (08:54)
[2017-08-22] MEDS: PIPERACILLIN/TAZOBACTAM/D5W 3.375 G in PREMIXED 1 EACH IV SCH ×2 (10:00→17:48)
[2017-08-22 15:14] VITALS: BP 117/65
[2017-08-22] MEDS ORDERED: INSULIN REGULAR, HUMAN 300 UNIT/3 ML VIAL SQ PRN (19:54)
[2017-08-22 19:55] VITALS: BP 122/54
[2017-08-22] MEDS: TAMSULOSIN HCL 0.4 MG CAP.SR.24H PO SCH (21:52)
--- NOTE | 2017-08-22 22:00 | NUR ---
CHARGE NURSE, JOSE, RECEIVED ORDER FROM DR. MEDRANO TO CHANGE PATIENT'S ACCUCHECK FROM Q4H TO ACHS.
--- NOTE | 2017-08-23 | NUR ---
RECEIVED Pt IN ROOM SITTING IN JOYCE-CHAIR WITH 1:1 SITTER AT BEDSIDE FOR SAFETY, CONTINUES TO BE RESTLESS AND CONFUSED. Pt WAS BECOMING INCREASINGLY RESTLESS AND AGITATED, ADMINISTERED ATIVAN 0.5 MG IV INJ PRN WITH GOOD EFFECT. Pt HAS BEEN RESTING COMFORTABLY WITHOUT ANY NOTED DISTRESS SINCE ATIVAN ADMINISTRATION. BLOOD SUGAR OF 201 AT BEDTIME, COVERED WITH 6 UNITS OF REGULAR INSULIN PER SLIDING SCALE PROTOCOL. COMPLIANT WITH MEDS, NO HOSTILE OR COMBATIVE BEHAVIOR NOTED.
[2017-08-23] MEDS: PIPERACILLIN/TAZOBACTAM/D5W 3.375 G in PREMIXED 1 EACH IV SCH ×3 (01:18→18:30)
[2017-08-23] MEDS: BLOOD SUGAR DIAGNOSTIC 1 EACH STRIP VI SCH ×5 (06:36→20:53)
--- NOTE | 2017-08-23 07:04 | NUR ---
PATIENT'S SITTER REPORTED TO NURSE THAT HE FED THE PATIENT A BURRITO THIS MORNING BEFORE NURSE CAME IN TO CHECK BLOOD SUGAR. PER SITTER, THE PATIENT WAS AWAKE AND RESTLESS, UNABLE TO GO BACK TO SLEEP. SITTER STATED, "I FED HIM BECAUSE HE FALLS ASLEEP AFTER EATING." NURSE INFORMED SITTER REGARDING THE PATIENT'S DIABETIC REGIMEN AND DIET, AND THAT EATING FOOD PRIOR TO ACCUCHECK CAN AFFECT ACCUCHECK READING. WILL ENDORSE TO DAY SHIFT NURSE REGARDING POSSIBLE ACCUCHECK MISREADING, AND TO RECHECK BLOOD SUGAR PRIOR TO INSULIN ADMINISTRATION THIS MORNING.
[2017-08-23 07:26] VITALS: BP 116/73
[2017-08-23] MEDS: PANTOPRAZOLE SODIUM 40 MG TABLET.DR PO SCH (08:53)
[2017-08-23] MEDS: ASPIRIN 325 MG TABLET PO SCH (08:53)
[2017-08-23] MEDS: METFORMIN HCL 500 MG TABLET PO SCH ×2 (08:53→17:13)
[2017-08-23] MEDS: LISINOPRIL 5 MG TABLET PO SCH (08:54)
[2017-08-23] MEDS ORDERED: INSULIN REGULAR, HUMAN 300 UNITS/3 ML VIAL SQ PRN (09:15)
[2017-08-23] MEDS ORDERED: DEXTROSE 50% 50 ML DISP.SYRIN IV PRN (09:15)
[2017-08-23] MEDS: INSULIN REGULAR, HUMAN 300 UNIT/3 ML VIAL SQ PRN ×2 (09:19→12:21)
[2017-08-23] MEDS: glipiZIDE 5 MG TABLET PO SCH (11:19)
--- NOTE | 2017-08-23 14:05 | NUR ---
SBAR report received this morning, board updated. Pt assessed, alert, oriented x1 to self only, denies c/o pain. BS rechecked per endorsement, second am reading 209, 6 units of insulin coverage administered. Pt compliant with all routine morning medication administration. 1:1 sitter present at bedside. Gamino catheter intact, care provided, draining clear, yellow urine. IV flushed, patent, and antibiotic administered per MD orders. 1130 am BS reading of 204 covered with 6 units of insulin. Pt able to cooperate with all therapies offered, ambulating steadily with walker. Bed in locked and lowest position, with side rails up x2. All comfort and safety measures implemented at this time. Will continue to monitor.
[2017-08-23 15:08] VITALS: BP 108/64
[2017-08-23] MEDS: QUETIAPINE FUMARATE 25 MG TABLET PO PRN (15:52)
[2017-08-23] MEDS: LORAZEPAM 2 MG/1 ML VIAL IV PRN (17:18)
--- NOTE | 2017-08-23 18:44 | NUR ---
Pt has remained in stable condition with all needs promptly attended to throughout this shift. Pt became agitated and and irritated with staff and care being provided, Seroquel administered. Pt continued to be come verbally aggressive, Ativan administered per MD orders. Pt able to calm down. Family currently visiting at bedside with Pt. 1:1 sitter and personal items in place. Will continue to monitor behavior and endorse to oncoming pump operator byproducts.
--- NOTE | 2017-08-23 19:50 | NUR ---
Received pt sleeping in bed. Arouse easily when called by name. Sitter at bedside. Pt appears to be calm and cooperative at this time. AAO x1 to name. Gamino catheter noted in place, intact and draining well with yellow colored urine. No acute distress noted. No c/o pain or discomfort. No signs of pain or facial grimacing noted. Safety measures maintained. Bed alarm on. Will continue to monitor.
[2017-08-23 20:41] VITALS: BP 141/72
[2017-08-23] MEDS: TAMSULOSIN HCL 0.4 MG CAP.SR.24H PO SCH (20:53)
[2017-08-24 05:49] VITALS: BP 130/71
[2017-08-24] MEDS: BLOOD SUGAR DIAGNOSTIC 1 EACH STRIP VI SCH ×4 (06:31→21:01)
--- NOTE | 2017-08-24 08:00 | NUR ---
Patient awake, alert, sitting on bed, eating breakfast, not in any form of acute distress. He denies any pain or discomfort at this time. Assisted with his needs. 1:1 sitter at bedside.
[2017-08-24 08:39] VITALS: BP 136/49
[2017-08-24] MEDS: PANTOPRAZOLE SODIUM 40 MG TABLET.DR PO SCH (08:54)
[2017-08-24] MEDS: glipiZIDE 5 MG TABLET PO SCH (08:54)
[2017-08-24] MEDS: METFORMIN HCL 500 MG TABLET PO SCH ×2 (08:54→17:25)
[2017-08-24] MEDS: ASPIRIN 325 MG TABLET PO SCH (08:54)
[2017-08-24] MEDS: LISINOPRIL 5 MG TABLET PO SCH (08:55)
--- NOTE | 2017-08-24 10:08 | NUR ---
Patient out of bed ambulating with OT with walker, not in any distress, no complain at this time.
[2017-08-24] MEDS: INSULIN REGULAR, HUMAN 300 UNIT/3 ML VIAL SQ PRN (12:31)
[2017-08-24 15:37] VITALS: BP 118/61
[2017-08-24 20:00] VITALS: BP 135/71
[2017-08-24] MEDS: TAMSULOSIN HCL 0.4 MG CAP.SR.24H PO SCH (21:01)
--- NOTE | 2017-08-24 22:18 | NUR ---
The patient received at bed, awake,alert and oriented x2. Patient sitter was at bedside. No acute distress or SOB was noted. No complain of pain or discomfort. Gamino catheter in placed, draining well with clear yellow colored urine. Accucheck was done 78, no insulin coverage, some crackles was given. The med given as ordered. Call light and personal belongings within reach. Safety measures maintained. Bed alarm and bed brake on for safety precaution. All needs attended and anticipated. Continue to monitor.
[2017-08-25 04:00] VITALS: BP 145/77
--- NOTE | 2017-08-25 05:28 | NUR ---
End of shift note patient slept well throughout the night. No change in LOC or mentation. Remained stable throughout the shift. Sitter was at the bedside. Med given as ordered. All needs attended promptly. Call light and personal belongings within reach. Bed alarm and bed brake on for safety precaution. Will endorse accordingly to incoming shift for continuity of care.
[2017-08-25] MEDS: BLOOD SUGAR DIAGNOSTIC 1 EACH STRIP VI SCH ×4 (06:49→20:36)
[2017-08-25 07:28] VITALS: BP 137/73
[2017-08-25] MEDS: ASPIRIN 325 MG TABLET PO SCH (08:15)
[2017-08-25] MEDS: METFORMIN HCL 500 MG TABLET PO SCH ×2 (08:15→18:32)
[2017-08-25] MEDS: PANTOPRAZOLE SODIUM 40 MG TABLET.DR PO SCH (08:15)
[2017-08-25] MEDS: LISINOPRIL 5 MG TABLET PO SCH (08:17)
[2017-08-25] MEDS: glipiZIDE 5 MG TABLET PO SCH (09:50)
[2017-08-25] MEDS: INSULIN REGULAR, HUMAN 300 UNIT/3 ML VIAL SQ PRN (11:51)
[2017-08-25 16:16] VITALS: BP 118/62
--- NOTE | 2017-08-25 19:08 | NUR ---
patient stable this shift. no PRN given. no s/s acute distress. patient had moments of confusion but cooperative with cares. sitter at bedside for safety. will endorse to logistics management specialist.
[2017-08-25 20:03] VITALS: BP 129/68
[2017-08-25] MEDS: TAMSULOSIN HCL 0.4 MG CAP.SR.24H PO SCH (20:36)
[2017-08-25] MEDS: QUETIAPINE FUMARATE 25 MG TABLET PO PRN (22:48)
[2017-08-26] MEDS: LORAZEPAM 2 MG/1 ML VIAL IV PRN ×3 (00:14→17:15)
--- NOTE | 2017-08-26 00:18 | NUR ---
PT IS VERY AGITATED, SUSPICIOUS, VERY CONFUSED SAYING ABOUT [place], AND CALLING THE POLICE, I TRIED TO GIVE SEROQUEL FIRST BUT PT WONT TAKE IT BY MOUTH, MEDICINE WAS WASTED WITH CHARGE NURSE. ATIVAN IV WAS GIVEN ORDERED, CONTINUE ON 1:1 SITTER FOR SAFETY. CONTINUE TO MONITOR. Addendum: 08/26/17 at 0027 by NIRALI DUARTE RN PT WAS COMBATIVE TO STAFF, SCREAMING "CALL THE POLICE!."
[2017-08-26] MEDS ORDERED: LORAZEPAM 2 MG/1 ML VIAL IV ONE (01:15)
--- NOTE | 2017-08-26 01:24 | NUR ---
PT UP ON GERICHAIR, STILL VERY RESTLESS AND ANXIOUS, SCREAMING ON TOP OF HIS LUNGS DESPITE OF ATIVAN 0.5MG IV GIVEN AN HOUR AGO. MIYA CRUZ NP MADE AWARE, WITH ORDER TO GIVE ANOTHER DOSE OF ATIVAN 1MG. WILL MONITOR.
--- NOTE | 2017-08-26 04:56 | NUR ---
PT IN BED, SLEPT AFTER GIVEN WITH ATIVAN IV. CONTINUE ON 1:1 SITTER FOR SAFETY. CALM AT THIS TIME.
[2017-08-26 05:17] VITALS: BP 124/70
[2017-08-26] MEDS: BLOOD SUGAR DIAGNOSTIC 1 EACH STRIP VI SCH ×4 (06:33→20:14)
[2017-08-26 07:38] LABS: BASOPHILS # (AUTO) 0.1 K/uL (0.0-8.0); BASOPHILS % (AUTO) 0.5 % (0.0-2.0); EOSINOPHILS # (AUTO) 0.4 K/uL (0.0-0.7); EOSINOPHILS % (AUTO) 3.7 % (0.0-7.0); HEMATOCRIT 31.6 % (36.7-47.1); HEMOGLOBIN 11.2 g/dL (12.5-16.3); LYMPHOCYTES # (AUTO) 1.3 K/uL (20.0-40.0); LYMPHOCYTES % (AUTO) 12.2 % (20.5-51.5); MEAN CORPUSCULAR HEMOGLOBIN 30.2 uug (23.8-33.4); MEAN CORPUSCULAR HGB CONC 36 g/dL (32.5-36.3); MEAN CORPUSCULAR VOLUME 85.2 fL (73.0-96.2); MONOCYTES # (AUTO) 0.8 K/uL (2.0-10.0); MONOCYTES % (AUTO) 7.3 % (0.0-11.0); NEUTROPHILS # (AUTO) 8.2 K/uL (1.8-8.9); NEUTROPHILS % (AUTO) 76.3 % (38.5-71.5); PLATELET COUNT (AUTO) 388 K/uL (152-348); RED BLOOD CELL COUNT(AUTO) 3.71 MIL/uL (4.06-5.63); WHITE BLOOD COUNT (AUTO) 10.8 K/uL (3.6-10.2)
[2017-08-26 07:53] LABS: CARBON DIOXIDE 25 mmol/L (21-32); CHLORIDE 105 mmol/L (98-107); CREATININE 0.8 mg/dL (0.6-1.3); GLUCOSE 118 mg/dL (74-106); MAGNESIUM 1.6 mg/dL (1.8-2.4); PHOSPHOROUS 3.2 mg/dL (2.5-4.9); POTASSIUM 3.3 mmol/L (3.5-5.1); UREA NITROGEN, BLOOD 10 mg/dL (7-18)
[2017-08-26 08:17] VITALS: BP 128/73
[2017-08-26] MEDS: METFORMIN HCL 500 MG TABLET PO SCH ×2 (09:04→16:42)
[2017-08-26] MEDS: LISINOPRIL 5 MG TABLET PO SCH (09:04)
[2017-08-26] MEDS: glipiZIDE 5 MG TABLET PO SCH (09:04)
[2017-08-26] MEDS: PANTOPRAZOLE SODIUM 40 MG TABLET.DR PO SCH (09:04)
[2017-08-26] MEDS: ASPIRIN 325 MG TABLET PO SCH (09:04)
[2017-08-26] MEDS: QUETIAPINE FUMARATE 25 MG TABLET PO PRN (10:08)
--- NOTE | 2017-08-26 10:30 | NUR ---
PATIENT AGITATED, ALERT BUT CONFUSED, TALKING ABOUT GOING TO THE BANK. WORKING WITH PT BUT YELLS COMMANDS, PRN SEROQUEL GIVEN FOR PSYCHOSIS AND ATIVAN PRN GIVEN FOR AGITATION. PT HAD INCONTINENT BM, CLEANED UP AND WENT TO GYM WITH PT.
--- NOTE | 2017-08-26 10:56 | NUR ---
FRANCO received a called from Gilma at [facility] [phone], inquiring about patient's current location. FRANCO informed Gilma that patient is still at [facility]. Gilma stated that she will be visiting patient today. FRANCO agreed, and asked Gilma to notify FRANCO once she arrives to the hospital. Gilma agreed. FRANCO junior spoke with MAXIMUS Banegas, provided her some background information on the case and the reason for the APS report. FRANCO informed Makenzie that APS will be visiting patient today, and that this FRANCO would notify Makenzie when APS arrives, in order to introduce Gilma to Makenzie. Makenzie agreed.
[2017-08-26] MEDS ORDERED: MAGNESIUM OXIDE 400 MG TABLET PO ONE (13:00)
[2017-08-26] MEDS ORDERED: POTASSIUM CHLORIDE 20 MEQ TAB.PRT.SR PO ONE ×2 (13:00→17:45)
--- NOTE | 2017-08-26 15:36 | NUR ---
2:30pm Leslye from APS arrived to the hospital; FRANCO met with Leslye, escorted her to DEU and introduced her to DEU FRANCO Banegas. This FRANCO, Makenzie, and Leslye discussed patient's case and reason for APS referral. Leslye gathered medical information from nurses Marlyn and Mamie; face sheet and list of meds provided to Leslye. Patient was asleep and therefore Leslye was unable to interview him, however was able to gather the necessary medical and behavioral/cognitive information from then nurses. FRANCO Banegas to follow-up with Leslye for any additional information/interventions that may be required.
--- NOTE | 2017-08-26 16:19 | NUR ---
Progressive Care Unit Registered Nurse Note: SW received call from Kristin WILSON regarding previous APS report and involvement for this patient (See Kristin's Note from 08/16/17 for events around APS report for suspected self-neglect). FRANCO met with APS Lesyle Joseph and Kristin in ARU to provide additional information. APS worker gathered information from the staff, and was unable to assess the patient as he was sleeping. APS kell requested capacity evaluation for the patient, and SW follow-up with Junior Business Analyst, Daxa Pearson regarding request. Per Daxa, evaluation would need to be conducted if patient is refusing all placement. FRANCO consulted with Linus Tatum about discharge planning for the patient. Per Linus, tentative plan is for patient to go to a SNF and he will be discussing options with pt and family in the upcoming days. Plan: FRANCO will follow-up with APS Leslye Joseph to provide information about discharge plan.
[2017-08-26] MEDS: BETHANECHOL CHLORIDE 25 MG TABLET PO SCH (16:42)
--- NOTE | 2017-08-26 18:04 | NUR ---
K-Dur replaced by pharm the ordered by Patient ate dinner then started shouting and becoming verbally abusive and impulsive, trying to leave and ambulate in room. Ativan given. Patient now in bed, still shouting. 1:1 sitter maintained for safety.
[2017-08-26 19:46] VITALS: BP 121/69
--- NOTE | 2017-08-26 20:00 | NUR ---
PATIENT ASLEEP IN BED. EASILY AROUSABLE. ALERT TO SELF. CONFUSED BUT APPROPRIATE AT THIS TIME. VS WNL. 1:1 SITTER AT BEDSIDE. DENIES PAIN. NO RESP. DISTRESS NOTED. BED ALARM ON. CALL LIGHT IN REACH. ALL NEEDS ATTENDED, WILL CONTINUE TO MONITOR AND ASSESS.
[2017-08-26] MEDS: TAMSULOSIN HCL 0.4 MG CAP.SR.24H PO SCH (20:16)
[2017-08-26] MEDS ORDERED: QUETIAPINE FUMARATE 25 MG TABLET PO SCH (21:00)
[2017-08-27 05:32] VITALS: BP 124/64
--- NOTE | 2017-08-27 05:58 | NUR ---
PATIENT AWAKE IN BED. ALERT TO SELF ONLY. CONFUSED, BUT APPROPRIATE WITH STAFF AND CARE. DENIES PAIN. MEPILEX NOTED TO SACRAL AREA, CHANGED. Z-GUARD APPLIED. SITTER AT BEDSIDE. PATIENT SLEPT WELL THROUGHOUT THE NIGHT. ALL NEEDS ATTENDED. WILL CONTINUE TO MONITOR AND ASSESS.
[2017-08-27] MEDS: BLOOD SUGAR DIAGNOSTIC 1 EACH STRIP VI SCH ×3 (06:35→17:13)
--- NOTE | 2017-08-27 07:26 | NUR ---
Patient noted sitting up in bed, 1 to 1 sitter noted at bedside, appears calm at this time, no facial cues of pain noted, no signs of distress noted, x3 bed rails in place, bed alarmed checked and in place, all needs met at this time
[2017-08-27] MEDS: METFORMIN HCL 500 MG TABLET PO SCH ×2 (08:54→17:13)
[2017-08-27] MEDS: LISINOPRIL 5 MG TABLET PO SCH (08:54)
[2017-08-27] MEDS: PANTOPRAZOLE SODIUM 40 MG TABLET.DR PO SCH (08:54)
[2017-08-27] MEDS: ASPIRIN 325 MG TABLET PO SCH (08:54)
[2017-08-27] MEDS: glipiZIDE 5 MG TABLET PO SCH (08:54)
[2017-08-27] MEDS: BETHANECHOL CHLORIDE 25 MG TABLET PO SCH ×3 (08:55→17:13)
[2017-08-27 09:32] VITALS: BP 100/57
[2017-08-27] MEDS: INSULIN REGULAR, HUMAN 300 UNIT/3 ML VIAL SQ PRN (12:24)
--- NOTE | 2017-08-27 14:34 | NUR ---
Food Preparation Worker Note: SW consulted with Senior Major Gifts Officer, Evelyn Pearson regarding APS request for capacity evaluation of patient. Per Daxa, pt will not require capacity evaluation if pt is accepting of placement post-discharge. At 1430, placed call to APS worker, Leslye ([phone]) to follow-up regarding capacity evaluation. Informed worker that pt is accepting of SNF placement at this time, and a capacity evaluation is not needed at this time. Leslye verbalized understanding and asked that SW notify her when pt is discharged to SNF. FRANCO will follow-up with Leslye when patient is discharged. SW will continue to be available throughout patient's stay in ARU.
--- NOTE | 2017-08-27 20:00 | NUR ---
RECEIVED PATIENT AWAKE IN BED. ALERT TO SELF ONLY. CONFUSED AND DISORIENTED BUT FOLLOWS DIRECTIONS WELL. NO S/S OF PAIN OR DISCOMFORT. NO RESP. DISTRESS NOTED. HEPLOCK NOTED TO LEFT FA #22 GAUGE, INTACT AND PATENT. 1:1 SITTER AT BEDSIDE. F/C INTACT AND DRAINING TO GRAVITY. BED ALARM ON. CALL LIGHT IN REACH. ALL NEEDS ATTENDED. WILL CONTINUE TO MONITOR.
[2017-08-27 20:26] VITALS: BP 113/54
[2017-08-27] MEDS: TAMSULOSIN HCL 0.4 MG CAP.SR.24H PO SCH (21:05)
[2017-08-27] MEDS: QUETIAPINE FUMARATE 25 MG TABLET PO SCH (21:05)
--- NOTE | 2017-08-27 23:00 | NUR ---
PATIENT AWAKE IN BED. VERY CONFUSED AND AGITATED, TRYING TO REPEATEDLY GET OOB. UNABLE TO REDIRECT. PATIENT GIVEN ATIVAN 0.5MG IV PER SHOE PULLER. VSS. SITTER AT BEDSIDE. BED ALARM ON. CALL LIGHT IN REACH. ALL NEEDS ATTENDED, WILL CONTINUE TO MONITOR.
[2017-08-27] MEDS: LORAZEPAM 2 MG/1 ML VIAL IV PRN (23:17)
--- NOTE | 2017-08-27 23:58 | NUR ---
PATIENT ASLEEP. SITTER AT BEDSIDE. NO S/S OF ANY RESP. DISTRESS OR SOB. ALL NEEDS ATTENDED. WILL CONTINUE TO MONITOR.
[2017-08-28 05:44] VITALS: BP 136/63
--- NOTE | 2017-08-28 06:14 | NUR ---
PATIENT AWAKE IN BED. ALERT TO SELF ONLY. VERY CONFUSED AND NEEDS FREQUENT REDIRECTION. DENIES PAIN. Z-GUARD APPLIED. SITTER AT BEDSIDE. PATIENT SLEPT WELL THROUGHOUT THE NIGHT. ALL NEEDS ATTENDED. WILL CONTINUE TO MONITOR AND ASSESS.
[2017-08-28 07:18] VITALS: BP 127/66
--- NOTE | 2017-08-28 07:18 | NUR ---
Patient noted resting bed with eyes closed, 1 to 1 sitter noted at bedside, no facial cues of pain, easily arouses, no signs of distress noted, call light in reach, bed locked and in lowest position, x3 bed rales in place, bed alarm in place.
--- NOTE | 2017-08-28 08:18 | NUR ---
I agree Addendum: 08/28/17 at 0818 by DAE BUTTS OT Amended: Links added.
[2017-08-28] MEDS: BETHANECHOL CHLORIDE 25 MG TABLET PO SCH ×3 (08:57→17:02)
[2017-08-28] MEDS: METFORMIN HCL 500 MG TABLET PO SCH ×2 (08:57→17:02)
[2017-08-28] MEDS: ASPIRIN 325 MG TABLET PO SCH (08:57)
[2017-08-28] MEDS: glipiZIDE 5 MG TABLET PO SCH (08:57)
[2017-08-28] MEDS: PANTOPRAZOLE SODIUM 40 MG TABLET.DR PO SCH (08:58)
[2017-08-28] MEDS: LISINOPRIL 5 MG TABLET PO SCH (08:58)
--- NOTE | 2017-08-28 11:33 | NUR ---
WOUND CARE CONSULT: PT PRESENTS WITH MULTIPLE DRY SCRATCHES AND ABRASIONS AND RASH TO SACRAL/BUTTOCKS AREA WITH SOME PEELING SKIN AND AREAS OF OPEN SKIN. RECOMMENDATIONS MADE FOR SKIN CARE AND PROTECTION. DISCUSSED WITH NURSING STAFF. PT MOVES UNPREDICTABLY AT TIMES AND IS CONFUSED/COMBATIVE AT TIMES. SHWETHA NOTED. PER NURSING STAFF PT IS INCONTINENT OF STOOL. WILL SEE PRN. RAHMAN IN AGREEMENT WITH PLAN OF CARE. Addendum: 08/28/17 at 1136 by RIC PANDYA RN Amended: Links added.
[2017-08-28 16:00] VITALS: BP 112/60
[2017-08-28] MEDS: CLOTRIMAZOLE 1% CREAM 30 GM TUBE TOP SCH (17:02)
--- NOTE | 2017-08-28 19:30 | NUR ---
1 TO 1 SITTER NOTED AT BEDSIDE, NO BEHAVIORS NOTED THIS SHIFT, TOOK ALL MEDICATIONS PRESCRIBED
[2017-08-28 20:00] VITALS: BP 134/82
--- NOTE | 2017-08-28 20:00 | NUR ---
RECEIVED PATIENT AWAKE IN BED. ALERT TO SELF ONLY. CONFUSED AND DISORIENTED BUT FOLLOWS DIRECTIONS WELL. DENIES PAIN. NO S/S OF PAIN OR DISCOMFORT. NO RESP. DISTRESS NOTED. HEPLOCK NOTED TO LEFT FA #22 GAUGE, INTACT AND PATENT. 1:1 SITTER AT BEDSIDE. F/C INTACT AND DRAINING TO GRAVITY. BED ALARM ON. CALL LIGHT IN REACH. ALL NEEDS ATTENDED. WILL CONTINUE TO MONITOR.
[2017-08-28] MEDS: QUETIAPINE FUMARATE 25 MG TABLET PO SCH (20:36)
[2017-08-28] MEDS: TAMSULOSIN HCL 0.4 MG CAP.SR.24H PO SCH (20:36)
[2017-08-29] MEDS: LORAZEPAM 2 MG/1 ML VIAL IV PRN ×2 (00:53→22:37)
--- NOTE | 2017-08-29 00:53 | NUR ---
Pt WAS NOTED RESTLESS AND AGITATED. UNABLE TO SLEEP EVEN WITH MULTIPLE INTERVENTIONS BY NURSING STAFF. Pt HYPERVERBAL AND CONSTANTLY ATTEMPTING TO GET OUT OF BED. PER CLINICAL ASSESSMENT, ADMINISTERED ATIVAN 0.5 MG IV INJ PRN FOR INCREASED ANXIETY AND AGITATION. WILL MONITOR Pt BEHAVIOR CLOSELY FOR MEDICATION EFFECTIVENESS. 1:1 SITTER AT BEDSIDE FOR SAFETY.
--- NOTE | 2017-08-29 02:00 | NUR ---
PATIENT ASLEEP IN BED. RESTING WELL. NO RESP. DISTRESS NOTED. SITTER AT BEDSIDE FOR SAFETY. ALL NEEDS ATTENDED.
--- NOTE | 2017-08-29 06:57 | NUR ---
PATIENT ASLEEP IN BED. SITTER AT BEDSIDE. BED ALARM ON. CALL LIGHT IN REACH. ALL NEEDS ATTENDED. WILL CONTINUE TO MONITOR.
--- NOTE | 2017-08-29 07:37 | NUR ---
PATIENT NOTED RESTING BED, 1:1 SITTER AT BEDSIDE, CALL LIGHT IN REACH, BED LOCK AND IN LOWEST POSITION, X [address], NO FACIAL CUES OF PAIN, NO SIGNS OF DISTRESS NOTED, ALL NEEDS MET AT THIS TIME.
[2017-08-29 08:00] LABS: BASOPHILS # (AUTO) 0.1 K/uL (0.0-8.0); BASOPHILS % (AUTO) 0.6 % (0.0-2.0); EOSINOPHILS # (AUTO) 0.5 K/uL (0.0-0.7); EOSINOPHILS % (AUTO) 4.6 % (0.0-7.0); HEMATOCRIT 33.8 % (36.7-47.1); HEMOGLOBIN 11.5 g/dL (12.5-16.3); LYMPHOCYTES # (AUTO) 1.1 K/uL (20.0-40.0); LYMPHOCYTES % (AUTO) 10.5 % (20.5-51.5); MEAN CORPUSCULAR HEMOGLOBIN 29.1 uug (23.8-33.4); MEAN CORPUSCULAR HGB CONC 34 g/dL (32.5-36.3); MEAN CORPUSCULAR VOLUME 85.6 fL (73.0-96.2); MONOCYTES # (AUTO) 0.8 K/uL (2.0-10.0); MONOCYTES % (AUTO) 7.2 % (0.0-11.0); NEUTROPHILS # (AUTO) 8.3 K/uL (1.8-8.9); NEUTROPHILS % (AUTO) 77.1 % (38.5-71.5); PLATELET COUNT (AUTO) 404 K/uL (152-348); RED BLOOD CELL COUNT(AUTO) 3.95 MIL/uL (4.06-5.63); WHITE BLOOD COUNT (AUTO) 10.8 K/uL (3.6-10.2)
[2017-08-29 08:22] LABS: ALANINE AMINOTRANSFERASE 25 U/L (16-63); ALKALINE PHOSPHATASE 57 U/L (50-136); ASPARTATE AMINOTRANSFERASE 18 U/L (15-37); BILIRUBIN,TOTAL 1.2 mg/dL (0.2-1.0); CARBON DIOXIDE 25 mmol/L (21-32); CHLORIDE 105 mmol/L (98-107); CREATININE 0.7 mg/dL (0.6-1.3); GLUCOSE 99 mg/dL (74-106); MAGNESIUM 1.6 mg/dL (1.8-2.4); PHOSPHOROUS 3.6 mg/dL (2.5-4.9); TOTAL PROTEIN, SERUM 7.5 g/dL (6.4-8.2); UREA NITROGEN, BLOOD 16 mg/dL (7-18)
[2017-08-29] MEDS: PANTOPRAZOLE SODIUM 40 MG TABLET.DR PO SCH (09:29)
[2017-08-29] MEDS: LISINOPRIL 5 MG TABLET PO SCH (09:29)
[2017-08-29] MEDS: glipiZIDE 5 MG TABLET PO SCH (09:29)
[2017-08-29] MEDS: METFORMIN HCL 500 MG TABLET PO SCH ×2 (09:29→16:55)
[2017-08-29] MEDS: ASPIRIN 325 MG TABLET PO SCH (09:30)
[2017-08-29] MEDS: BETHANECHOL CHLORIDE 25 MG TABLET PO SCH ×3 (09:30→16:55)
[2017-08-29] MEDS: CLOTRIMAZOLE 1% CREAM 30 GM TUBE TOP SCH ×2 (09:30→16:55)
[2017-08-29 09:38] VITALS: BP 135/72
--- NOTE | 2017-08-29 11:45 | NUR ---
I agree Addendum: 08/29/17 at 1146 by DAE BUTTS OT Amended: Links added.
--- NOTE | 2017-08-29 11:45 | NUR ---
I agree Addendum: 08/29/17 at 1145 by DAE BUTTS OT Amended: Links added.
[2017-08-29] MEDS ORDERED: MAGNESIUM OXIDE 400 MG TABLET PO ONE (12:45)
[2017-08-29 15:18] VITALS: BP 126/79
[2017-08-29 20:39] VITALS: BP 119/62
[2017-08-29] MEDS: QUETIAPINE FUMARATE 25 MG TABLET PO SCH (22:38)
[2017-08-29] MEDS: TAMSULOSIN HCL 0.4 MG CAP.SR.24H PO SCH (22:38)
[2017-08-30 06:44] VITALS: BP 119/64
[2017-08-30 08:09] VITALS: BP 114/56
--- NOTE | 2017-08-30 08:10 | NUR ---
Received patient awake, alert x1-2. No pain noted. Not in any form of distress. With sitter at bedside. Per manufacturing supervisor 2nd shift nurse patient bladder scan about 5:00 am at 980, straight catheter done by night RN. Dr. Jane informed.
[2017-08-30] MEDS: glipiZIDE 5 MG TABLET PO SCH (08:44)
[2017-08-30] MEDS: PANTOPRAZOLE SODIUM 40 MG TABLET.DR PO SCH (08:44)
[2017-08-30] MEDS: ASPIRIN 325 MG TABLET PO SCH (08:44)
[2017-08-30] MEDS: METFORMIN HCL 500 MG TABLET PO SCH ×2 (08:44→17:23)
[2017-08-30] MEDS: BETHANECHOL CHLORIDE 25 MG TABLET PO SCH ×3 (08:44→17:23)
[2017-08-30] MEDS: LISINOPRIL 5 MG TABLET PO SCH (08:45)
[2017-08-30] MEDS: CLOTRIMAZOLE 1% CREAM 30 GM TUBE TOP SCH ×2 (08:45→17:23)
--- NOTE | 2017-08-30 09:00 | NUR ---
Paged and informed Dr. Martino of patient's bladder scan of 980 ml taken by mini shifter. Left message through exchange.
--- NOTE | 2017-08-30 10:07 | NUR ---
Up with physical therapy. Tolerating therapy well. No discomforts noted.
--- NOTE | 2017-08-30 12:59 | NUR ---
Bladder scan of 936 ml. Paged Ernesto Sheffield through exchange once more.
--- NOTE | 2017-08-30 13:41 | NUR ---
INTERDISCIPLINARY TEAM CONFERENCE
--- NOTE | 2017-08-30 15:00 | NUR ---
Per Dr. Martino, no Gamino at this time. Report to the any discomfort and do bladder scan in AM
--- NOTE | 2017-08-30 17:30 | NUR ---
Patient agitated started shouting at sitter. Ativan PRN given
[2017-08-30] MEDS: LORAZEPAM 2 MG/1 ML VIAL IV PRN ×2 (17:56→22:49)
[2017-08-30 19:30] VITALS: BP 98/57
[2017-08-30] MEDS: TAMSULOSIN HCL 0.4 MG CAP.SR.24H PO SCH (22:50)
[2017-08-30] MEDS: QUETIAPINE FUMARATE 25 MG TABLET PO SCH (22:50)
[2017-08-31 08:33] VITALS: BP 129/76
[2017-08-31] MEDS: ASPIRIN 325 MG TABLET PO SCH (08:55)
[2017-08-31] MEDS: glipiZIDE 5 MG TABLET PO SCH (08:55)
[2017-08-31] MEDS: PANTOPRAZOLE SODIUM 40 MG TABLET.DR PO SCH (08:55)
[2017-08-31] MEDS: BETHANECHOL CHLORIDE 25 MG TABLET PO SCH ×3 (08:55→16:42)
[2017-08-31] MEDS: METFORMIN HCL 500 MG TABLET PO SCH ×2 (08:55→16:42)
[2017-08-31] MEDS: LISINOPRIL 5 MG TABLET PO SCH (08:58)
[2017-08-31] MEDS: CLOTRIMAZOLE 1% CREAM 30 GM TUBE TOP SCH ×2 (09:00→16:45)
--- NOTE | 2017-08-31 09:41 | NUR ---
Received patient awake, alert and verbally responsive. no behavioral problem noted. bladder scan in AM done, soaked linen on bed noted from urine output. assisted to the bathroom to void. 200cc urine output noted. no complaint voiced. not in distress. will continue monitor
[2017-08-31] MEDS: QUETIAPINE FUMARATE 25 MG TABLET PO PRN (11:50)
--- NOTE | 2017-08-31 12:30 | NUR ---
Patient voided 350 cc around 12nn without any complaint of pain/discomfort. will continue monitor
--- NOTE | 2017-08-31 15:31 | NUR ---
soaked bed linen noted from urine output estimated 100cc output.
--- NOTE | 2017-08-31 17:32 | NUR ---
Seen by MD Martino, ordered continue monitor urine output. Encourage voiding if needed. Continue bladder scan every morning. will continue monitor
--- NOTE | 2017-08-31 19:01 | NUR ---
As per MD Isabel, encourage patient to void in urinal or bathroom. ordered straight catheter if the patient is agitated or complaining of lower abdominal discomfort. will continue monitor
--- NOTE | 2017-08-31 19:40 | NUR ---
PATIENT SITTING ON BED, HYPER VERBAL, CONFUSED. TRIED TO ORIENT THE PATIENT AND USED NON MEDICAL INTERVENTIONS . 1:1 SITTER AT [facility] BED SIDE. WILL CONTINUE TO MONITOR.
[2017-08-31 20:00] VITALS: BP 122/63
[2017-08-31] MEDS: TAMSULOSIN HCL 0.4 MG CAP.SR.24H PO SCH (20:16)
[2017-08-31] MEDS: QUETIAPINE FUMARATE 25 MG TABLET PO SCH (20:17)
--- NOTE | 2017-08-31 21:00 | NUR ---
MEDICATIONS ADMINISTERED ORDERED
[2017-08-31] MEDS: LORAZEPAM 2 MG/1 ML VIAL IV PRN (22:31)
--- NOTE | 2017-08-31 22:54 | NUR ---
ATIVAN 0.5 MG ADMINISTERED VIA IV LYUBOV PATIENT WAS RESTLESS AND TYING TO GET OUT OF THE ROOM. 1:1 SITTER AT THE BED SIDE
--- NOTE | 2017-09-01 06:52 | NUR ---
PATIENT HAD EPISODES OF RESTLESSNESS AND ANXIETY DURING THE SHIFT. 1: 1 SITTER AT THE BED SIDE FOR SAFETY.PATIENT TRIED TO GET OUT OF BED AND AMBULATES THROUGH THE HAND WAY. ORIENTED AND DISTRACTED THE PATIENT WITH NON PHARMACOLOGICAL INTERVENTION . MEDICATION WAS ADMINISTERED OTHER INTERVENTIONS WERE NOT SUCCESSFUL. ENCOURAGED THE PATIENT TO USE THE REST ROOM OR URINAL, BUT NO URINE PATIENT URINATED IN THE DIAPER.
[2017-09-01 08:43] VITALS: BP 118/62
[2017-09-01] MEDS: BETHANECHOL CHLORIDE 25 MG TABLET PO SCH ×3 (08:51→17:33)
[2017-09-01] MEDS: PANTOPRAZOLE SODIUM 40 MG TABLET.DR PO SCH (08:51)
[2017-09-01] MEDS: glipiZIDE 5 MG TABLET PO SCH (08:51)
[2017-09-01] MEDS: ASPIRIN 325 MG TABLET PO SCH (08:51)
[2017-09-01] MEDS: METFORMIN HCL 500 MG TABLET PO SCH ×2 (08:52→17:33)
[2017-09-01] MEDS: LISINOPRIL 5 MG TABLET PO SCH (08:54)
[2017-09-01] MEDS: CLOTRIMAZOLE 1% CREAM 30 GM TUBE TOP SCH ×2 (08:55→17:33)
--- NOTE | 2017-09-01 09:54 | NUR ---
Patient noted resting in bed with 1 to 1 sitter at bedside, no complaints of pain, no signs of distress noted, call light in reach, bed locked and in lowest position, all needs met at this time
[2017-09-01 16:57] VITALS: BP 124/69
[2017-09-01] MEDS: QUETIAPINE FUMARATE 25 MG TABLET PO PRN (18:01)
--- NOTE | 2017-09-01 19:40 | NUR ---
PATIENT BLADDER SCAN NOTED OVER 1000 ML 1500, MD QUIROZ NOTIFIED WITH ORDERS TO RESCAN BLADDER AT 1800. 1800 BLADDER SCAN NOTED 1000 ML AWAITING RETURN CALL FROM MD QUIROZ, INFORMATION ENDORSED TO COURTESY BUS DRIVER NURSE
[2017-09-01] MEDS: TAMSULOSIN HCL 0.4 MG CAP.SR.24H PO SCH (21:37)
[2017-09-01] MEDS: QUETIAPINE FUMARATE 25 MG TABLET PO SCH (21:38)
--- NOTE | 2017-09-02 00:18 | NUR ---
PT IN ROOM ALERT AWAKE WITH CONFUSION STILL PRESENT. DENIES ANY PAIN OR SOB. PERIODS OF AGITATION NOTED. NEEDS FREQUENT REORIENTATION INCLUDING SAFETY MEASURES. PT REMOVED IV SITE TO LEFT HAND. NO ABDOMINAL DISTENTION OR DISCOMFORT AT THIS TIME. WILL CONTINUE TO MONITOR. SITTER AT BEDSIDE. Addendum: 09/03/17 at 0134 by ANA ANTONIO RN WRONG TIME.
[2017-09-02] MEDS: LORAZEPAM 2 MG/1 ML VIAL IV PRN ×3 (00:30→22:11)
--- NOTE | 2017-09-02 06:55 | NUR ---
Pt. bladder scanner result after making 3-4 times voiding during the shift is 431 mls. Pt. just made a large voiding and bed so wet and pt. provided bedbath and perineal care. Then changed bed linens and diaper. Pt. bladder scanner done after with result of = 431 mls. now.
[2017-09-02 07:30] VITALS: BP 107/61
[2017-09-02] MEDS: glipiZIDE 5 MG TABLET PO SCH (08:45)
[2017-09-02] MEDS: ASPIRIN 325 MG TABLET PO SCH (08:45)
[2017-09-02] MEDS: QUETIAPINE FUMARATE 25 MG TABLET PO SCH (08:47)
[2017-09-02] MEDS: BETHANECHOL CHLORIDE 25 MG TABLET PO SCH ×3 (08:50→15:44)
[2017-09-02] MEDS: METFORMIN HCL 500 MG TABLET PO SCH ×2 (08:52→17:07)
[2017-09-02] MEDS: LISINOPRIL 5 MG TABLET PO SCH (08:52)
[2017-09-02] MEDS: CLOTRIMAZOLE 1% CREAM 30 GM TUBE TOP SCH ×2 (08:53→15:45)
[2017-09-02] MEDS: PANTOPRAZOLE SODIUM 40 MG TABLET.DR PO SCH (08:53)
--- NOTE | 2017-09-02 15:31 | NUR ---
BLADDER SCAN DONE 580ML OF URINE IN BLADDER AT THIS TIME. NO C/O PAIN OR DISTRESS. BLADDER PALPATED NO DISTENTION NOTED. FREQ ENCOURAGING HIM TO VOID HE HAS VOIDED 4 TIMES TODAY VIA DIAPER 3XS AND URINAL ONCE. NOW IN BED RESTING QUIETLY MJ THERAPY VSS
[2017-09-02] MEDS: QUETIAPINE FUMARATE 25 MG TABLET PO PRN ×2 (15:44→23:44)
[2017-09-02 15:49] VITALS: BP 142/76
[2017-09-02 16:00] VITALS: BP 142/76
--- NOTE | 2017-09-02 18:58 | NUR ---
BLADDER SCANNER SATES THERE IS NO URINE RESIDUAL IN THE BLADDER. PT HAS BEEN VOIDING SEVERAL TIMES IN THE DIAPER.
--- NOTE | 2017-09-02 19:30 | NUR ---
PT IN ROOM ALERT AWAKE WITH CONFUSION STILL PRESENT. DENIES ANY PAIN OR SOB. PERIODS OF AGITATION NOTED. NEEDS FREQUENT REORIENTATION INCLUDING SAFETY MEASURES. PT REMOVED IV SITE TO LEFT HAND. NO ABDOMINAL DISTENTION OR DISCOMFORT AT THIS TIME. WILL CONTINUE TO MONITOR. SITTER AT BEDSIDE
[2017-09-02] MEDS: TAMSULOSIN HCL 0.4 MG CAP.SR.24H PO SCH (20:41)
[2017-09-02] MEDS ORDERED: QUETIAPINE FUMARATE 25 MG TABLET PO SCH (21:00)
[2017-09-02] MEDS ORDERED: QUETIAPINE FUMARATE 100 MG TABLET PO SCH (21:00)
[2017-09-02 21:12] VITALS: BP 145/79
--- NOTE | 2017-09-02 22:15 | NUR ---
PT NOTED WITH INCREASED AGITATION AND PERIODS OF COMBATIVENESS WITH BM IN HAND. NOTED NON COMPLIANT, UNABLE TO FOLLOW DIRECTIONS, AND TRYING TO GET OUT OF BED. NEW IV SITE STARTED TO LEFT FOREARM #22. ATIVAN IV PRN GIVEN. WILL CONTINUE TO MONITOR. SITTER AT BEDSIDE.
[2017-09-03] MEDS: LORAZEPAM 2 MG/1 ML VIAL IV PRN ×2 (04:51→17:34)
--- NOTE | 2017-09-03 06:30 | NUR ---
NO INCREASED AGITATION SINCE RECENT ATIVAN GIVEN. PT ABLE TO SLEEP ONLY 4-6 HRS. NEEDS FREQUENT MONITORING FOR SAFETY AND REORIENTATION. PT ACTIVE IN GETTING OUT OF BED. ENCOURAGED FLUIDS AND WAS ABLE TO VOID MULTIPLE TIMES INCLUDING BOWEL MOVEMENTS OVERNIGHT. DENIES ANY PAIN OR SOB. WILL CONTINUE TO MONITOR. SITTER REMAINED AT BEDSIDE.
[2017-09-03 06:44] VITALS: BP 148/85
[2017-09-03 08:00] VITALS: BP 155/92
[2017-09-03] MEDS: METFORMIN HCL 500 MG TABLET PO SCH ×2 (08:21→17:34)
[2017-09-03] MEDS: glipiZIDE 5 MG TABLET PO SCH (08:22)
[2017-09-03] MEDS: ASPIRIN 325 MG TABLET PO SCH (08:22)
[2017-09-03] MEDS: PANTOPRAZOLE SODIUM 40 MG TABLET.DR PO SCH (08:22)
[2017-09-03] MEDS: QUETIAPINE FUMARATE 25 MG TABLET PO SCH (08:23)
[2017-09-03] MEDS: BETHANECHOL CHLORIDE 25 MG TABLET PO SCH ×3 (08:23→17:33)
[2017-09-03] MEDS: LISINOPRIL 5 MG TABLET PO SCH (08:24)
[2017-09-03] MEDS: CLOTRIMAZOLE 1% CREAM 30 GM TUBE TOP SCH (08:31)
--- NOTE | 2017-09-03 12:26 | NUR ---
Security Technician: Confirmed with DANNY Barriga and Rec TherapistFazal of patient's discharge today. Placed call to APS manager social responsibilityLeslye ([phone]) to alert about patient's discharge to [facility] today at 6pm [Address: [id number] [place] [address] ]. SW will continue to collaborate with APS as needed and will be available to assist with further discharge planning needs.
[2017-09-03 16:00] VITALS: BP 95/52
--- NOTE | 2017-09-03 16:29 | NUR ---
REPORT CALLED IN TO NURSE YBARRA AT [facility]. THE P/U TIME FOR HIM IS 1800.
--- NOTE | 2017-09-03 18:03 | NUR ---
[facility] HERE TO TRANSPORT HIM TO [facility]. VSS 118/55/72/18. 97%RA. IN NO ACUTE DISTRESS. SKIN INTACT NO PICS TAKEN. HE HAS NO OPEN AREAS TO [place] GROIN OR BUTTOCK
== END 2017-09-03 18:00 | DRG 91 ==
LOC: SA1 → UNDOADMIN 08-22 → SA1 08-22 00:16 → UNDODISIN 09-03 18:00
PROVIDERS: ADMIT Physical Medicine & Rehabilitation Pain Medicine; ATTEND Physical Medicine & Rehabilitation Pain Medicine
DX: G92 Toxic encephalopathy (principal); E43 Unspecified severe protein-calorie malnutrition; J69.0 Pneumonitis due to inhalation of food and vomit; N39.0 Urinary tract infection, site not specified; N17.9 Acute kidney failure, unspecified; N13.30 Unspecified hydronephrosis; B48.8 Other specified mycoses; M89.9 Disorder of bone, unspecified; D64.9 Anemia, unspecified; E11.22 Type 2 diabetes mellitus with diabetic chronic kidney disease; S32.019D Unspecified fracture of first lumbar vertebra, subsequent encounter for fracture with routine healing; S90.32XD Contusion of left foot, subsequent encounter; W19.XXXD Unspecified fall, subsequent encounter; I12.9 Hypertensive chronic kidney disease with stage 1 through stage 4 chronic kidney disease, or unspecified chronic kidney disease; N18.9 Chronic kidney disease, unspecified; N40.0 Benign prostatic hyperplasia without lower urinary tract symptoms; B35.1 Tinea unguium; F03.90 Unspecified dementia, unspecified severity, without behavioral disturbance, psychotic disturbance, mood disturbance, and anxiety; F29 Unspecified psychosis not due to a substance or known physiological condition; E88.09 Other disorders of plasma-protein metabolism, not elsewhere classified; I35.1 Nonrheumatic aortic (valve) insufficiency; I77.819 Aortic ectasia, unspecified site; M48.02 Spinal stenosis, cervical region; M48.061 Spinal stenosis, lumbar region without neurogenic claudication; N40.1 Benign prostatic hyperplasia with lower urinary tract symptoms; R33.8 Other retention of urine; Z91.81 History of falling
CPT/HCPCS: 36415; 70030-TC; 83735; 84100; 85025; 92507; 92523; 97110; 97112; 97116; 97530; 97535; A4663; J1815; J2060; J2543; J7040